=== PATIENT | female | born 1930 ===

== ENCOUNTER 2017-07-05 20:43 | Emergency (ER) | payer MEDICARE, MEDICAID ==
[2017-07-05 20:43] VITALS: PULSE 82
[2017-07-05 21:31] VITALS: TEMP 97.8; O2SAT 98
--- NOTE | 2017-07-05 21:59 | ED PDOC ---
Upper Extremity Pain/Injury Time Seen by Provider: 07/05/17 21:03 Chief Complaint (Nursing): Upper Extremity Problem/Injury Chief Complaint (Provider): Atraumatic Left Arm Pain History Per: Patient History/Exam Limitations: no limitations Onset/Duration Of Symptoms: Days (12 hours ago) Current Symptoms Are (Timing): Still Present Additional Complaint(s): 86 y/o female with a history of hypertension and osteoarthritis presents to the ED complaining of atraumatic left arm pain, onset of 12 hours ago. Patient reports that the pain subsides when she holds her arm in flexion and worsens when in extension. She denies any injury or sleeping on the the arm in the wrong position. She also denies any redness, fevers, chills, or other pain. Past Medical History Reviewed: Historical Data, Nursing Documentation, Vital Signs Vital Signs: Last Vital Signs Temp 97.8 F 07/05/17 21:28 Pulse 93 H 07/05/17 21:28 Resp 18 07/05/17 21:28 BP 208/116 H 07/05/17 21:28 Pulse Ox 98 07/05/17 21:28 - Medical History PMH: Anemia, Anxiety, Arthritis, Atrial Fibrillation, Cardia Arrhythmia, Dementia, Depression, Diabetes, Gastritis, HTN, Hypercholesterolemia, Hypothyroidism, Pancreatitis Denies: HIV, Chronic Kidney Disease Other PMH: Osteoarthritis - Surgical History Surgical History: Cholecystectomy, Pacemaker - Family History Family History: States: Unknown Family Hx - Social History Current smoker - smoking cessation education provided: No Ex-Smoker (has not smoked in the last 12 months): No Alcohol: None Drugs: Denies - Home Medications Home Medications: Ambulatory Orders Medication Instructions Recorded Alendronate Sodium [Fosamax] 35 mg PO QWK 04/16/14 Rosuvastatin Calcium [Crestor] 10 mg PO HS 04/16/14 Alprazolam [Xanax] 0.25 mg PO HS #0 tab 01/19/15 Amoxicillin 500 mg PO Q12 #0 cap 01/19/15 Aspirin [Ecotrin] 81 mg PO DAILY #0 tabec 01/19/15 Atorvastatin [Lipitor] 40 mg PO DAILY #0 tab 01/19/15 Digoxin 0.125 mg PO DAILY #0 tab 01/19/15 Latanoprost 0.005% Opht [Xalatan 1 drop OU HS #0 bottle 01/19/15 Opht] Levothyroxine [Synthroid] 0.075 mg PO DAILY@0630 #0 tab 01/19/15 Lisinopril [Zestril] 20 mg PO DAILY #0 tab 01/19/15 Metoprolol Succinate [Toprol XL] 50 mg PO QAM #0 tab 01/19/15 amLODIPine [Norvasc] 5 mg PO DAILY #0 tab 01/19/15 metFORMIN [glucOPHAGE] 500 mg PO BIDWM #0 tab 01/19/15 predniSONE [Prednisone] 10 mg PO DAILY #40 tab 01/19/15 Ketorolac Tromethamine [Toradol] 10 mg PO Q6 #20 tab 07/05/17 - Allergies Allergies/Adverse Reactions: Allergies Allergy/AdvReac Type Severity Reaction Status Date / Time No Known Allergies Allergy Verified 07/05/17 20:53 Review of Systems ROS Statement: Except As Marked, All Systems Reviewed And Found Negative Constitutional: Negative for: Fever, Chills Musculoskeletal: Positive for: Arm Pain (atraumatic left arm pain) Physical Exam - Reviewed Nursing Documentation Reviewed: Yes Vital Signs Reviewed: Yes - Physical Exam Appears: Positive for: Non-toxic, No Acute Distress Head Exam: Positive for: ATRAUMATIC Skin: Positive for: Normal Color, Warm Eye Exam: Positive for: Normal appearance, EOMI, PERRL ENT: Positive for: Normal ENT Inspection Neck: Positive for: Normal, Painless ROM, Supple Cardiovascular/Chest: Positive for: Regular Rate, Rhythm. Negative for: Murmur Respiratory: Positive for: Normal Breath Sounds. Negative for: Respiratory Distress Pulses-Radial (L): 2+ Pulses-Radial (R): 2+ Back: Positive for: Normal Inspection Extremity: Negative for: Normal ROM (left arm is held in flexion, unable to straighten arm secondary to pain; able to squeeze; able to flex and extend at the wrist; able to oppose thumb to all fingers), Pedal Edema, Deformity Neurologic/Psych: Positive for: Alert, Oriented. Negative for: Motor/Sensory Deficits - ECG O2 Sat by Pulse Oximetry: 98 (RA) Pulse Ox Interpretation: Normal Medical Decision Making Medical Decision Making: Time: --21:31 Impression: --Osteoarthritis flare vs. Deep Vein Thrombosis vs. Fracture Plan: --Toradol 15mg IVP --Morphine 2mg IVP --Left elbow x-ray --Left Forearm X-ray --Left Hand x-ray --Duplex UPPer Extremity VVein Left Ultrasound Reassess 2300 Pt. now pain free, 0/10 pain. u/s neg, xray shows OA but no acute pathology. Told family to f/u in clinic [facility]. Return precautions discussed. Scribe Attestation: Documented by Kai Bustillos acting as a scribe for Jose Zhu MD. Disposition - Clinical Impression Clinical Impression: Arm pain - Disposition Referrals: Lila Yeh MD [Family Provider] - Disposition Time: 23:30 Condition: IMPROVED Prescriptions: Ketorolac Tromethamine [Toradol] 10 mg PO Q6 #20 tab Instructions: Arthralgia (ED) Forms: [facility] (Somali) Print Language: FAROESE
--- NOTE | 2017-07-05 23:23 | US ---
EXAM: US Duplex Left Upper Extremity Veins EXAM DATE/TIME: 07/05/2017 9:31 PM CLINICAL HISTORY: 86 years old, female; Pain; Arn, upper and arm; Left; Additional info: R/O dvt TECHNIQUE: Real-time ultrasound scan of the veins of the left upper extremity with color Doppler flow, spectral waveform analysis and compression. COMPARISON: No relevant prior studies available. FINDINGS: No evidence of thrombus in the left internal jugular, subclavian, axillary, brachial, basilic, radial, ulnar veins based on compressibility and flow images. IMPRESSION: No evidence of DVT.
[2017-07-05 23:35] VITALS: RESP 16
[2017-07-05 23:57] VITALS: BP 187/98; PULSE 89
--- NOTE | 2017-07-06 09:29 | RAD ---
PROCEDURE: Radiographs of the left elbow. HISTORY: arm pain COMPARISON: No prior. FINDINGS: BONES: No acute fracture is appreciated or destructive bony lesion. Diffuse osteopenia suggests osteoporosis however. JOINTS: Normal. No osteoarthritis. SOFT TISSUES: Normal. JOINT EFFUSION: None. OTHER FINDINGS: None IMPRESSION: No acute fracture or dislocation left elbow. Diffuse osteopenia suggests osteoporosis.
--- NOTE | 2017-07-06 09:30 | RAD ---
PROCEDURE: Radiographs of the Left Forearm HISTORY: arm pain, no trauma, hx of OA COMPARISON: None available. TECHNIQUE: Frontal and lateral views obtained. FINDINGS: BONES: No fracture or destructive lesion. JOINT SPACES: Degenerative changes seen throughout the wrist joints diffusely. OTHER FINDINGS: Diffuse osteopenia suggests osteoporosis. IMPRESSION: No acute fracture or dislocation. Diffuse osteopenia suggests osteoporosis.
--- NOTE | 2017-07-06 09:32 | RAD ---
PROCEDURE: Left Hand Radiographs. HISTORY: pain, hx of OA COMPARISON: None. FINDINGS: BONES: No acute fracture or destructive bony lesion identified. Diffuse osteopenia suggests osteoporosis. Evaluation of the ring finger is limited due to inability of patient to remove a metallic ring. JOINTS: Mild joint space narrowing seen throughout the interphalangeal joints diffusely throughout the digits as well as throughout the joints of the wrist including cortical sclerosis. No dislocation. SOFT TISSUES: Normal. OTHER FINDINGS: None. IMPRESSION: No acute fracture or dislocation left hand. Diffuse osteopenia suggests osteoporosis. Degenerative changes are seen throughout the digits and wrist joints as discussed above.
== END 2017-07-05 23:57 | disposition home or self-care (01) ==
LOC: H.ER 20:43
DX: M79.602 Pain in left arm (principal); E11.9 Type 2 diabetes mellitus without complications; I10 Essential (primary) hypertension; Z86.59 Personal history of other mental and behavioral disorders; F03.90 Unspecified dementia, unspecified severity, without behavioral disturbance, psychotic disturbance, mood disturbance, and anxiety; E03.9 Hypothyroidism, unspecified; M85.80 Other specified disorders of bone density and structure, unspecified site; Z79.84 Long term (current) use of oral hypoglycemic drugs; Z87.891 Personal history of nicotine dependence; Z95.0 Presence of cardiac pacemaker; Z79.82 Long term (current) use of aspirin; E78.00 Pure hypercholesterolemia, unspecified
CPT/HCPCS: 73080; 73090; 73130; 93971; 96374; 96375; 99282; J1885; J2270

== ENCOUNTER 2017-09-19 14:10 | Observation (INO) | payer MEDICARE, MEDICAID ==
[2017-09-19 14:10] VITALS: PULSE 82
[2017-09-19] MEDS ORDERED: Sodium Chloride 0.9% 500 ML IV STA (15:10)
[2017-09-19 16:02] LABS: BASO % 0.1 % (0.0-2.0); EOS % 0.1 % (0.0-4.0); HEMOGLOBIN 14.9 g/dL (12.0-16.0); LYMPH # 0.9 K/uL (1.0-4.3); LYMPH % 6.7 % (20.0-40.0); MEAN CORPUSCULAR HEMOGLOBIN 31.8 pg (27.0-31.0); MEAN PLATELET VOLUME 7.8 fl (7.2-11.7); MONO # 0.8 K/uL (0.0-0.8); MONO % 5.6 % (0.0-10.0); NEUT % 87.5 % (50.0-75.0); NRBC % 0.1 % (0.0-0.0); PLATELET COUNT 318 K/uL (130-400); RBC 4.67 Mil/uL (3.80-5.20)
[2017-09-19 16:05] LABS: WHITE BLOOD COUNT 13.7 K/uL (4.8-10.8)
[2017-09-19 16:08] LABS: ALB/GLOB RATIO 1.3 (1.0-2.1); ALBUMIN 4.3 g/dL (3.5-5.0); ALT/SGPT 29 U/L (9-52); AST/SGOT 19 U/L (14-36); BLOOD UREA NITROGEN 17 mg/dl (7-17); CALCIUM 9.7 mg/dL (8.4-10.2); GFR AFRICAN-AMERICAN > 60; GFR NON-AFRICAN AMERICAN > 60; LIPASE 271 U/L (23-300)
--- NOTE | 2017-09-19 16:13 | ED PDOC ---
HPI:Nausea, Vomiting, Diarrhea Time Seen by Provider: 09/19/17 14:37 Chief Complaint (Nursing): Altered Mental Status Chief Complaint (Provider): Nausea, Vomiting and weakness History Per: Patient History/Exam Limitations: no limitations Onset/Duration Of Symptoms: Hrs (this morning. ) Current Symptoms Are (Timing): Still Present Associated Symptoms: Nausea, Vomiting, Other (generalized weakness) Additional Complaint(s): Renea Victor is an 87 year old female, with a past medical history of HTN , osteoarthritis, and cholecystectomy, who was brought to the emergency department via EMS for nausea, and generalized weakness onset since this morning associated with vomiting. Patient reports she woke up this morning not feeling well and dizzy. She had an appointment with orthopedic surgeon and was due to get injections into the shoulder on both sides, after injection she became more nauseous and vomited profusely multiple times. In doctors office she was noted to be lethargic, stone spreader operator notified the daughter and patient was brought to the ER. Upon arrival patient states she feels better but slightly off. Patient is just complaining of weakness all over and feeling tired. She wasn't communicating clearly even with the family. She denies any diarrhea, headache, chest pain or shortness of breath. No further medical complaints. PMD: Lila Yeh Past Medical History Reviewed: Historical Data, Nursing Documentation, Vital Signs Vital Signs: Last Vital Signs Temp 98.2 F 09/19/17 14:18 Pulse 91 H 09/19/17 14:18 Resp 16 09/19/17 14:18 BP 207/90 H 09/19/17 14:18 Pulse Ox 99 09/19/17 14:18 - Medical History PMH: Anemia, Anxiety, Arthritis, Atrial Fibrillation, Cardia Arrhythmia, Dementia, Depression, Diabetes, Gastritis, HTN, Hypercholesterolemia, Hypothyroidism, Pancreatitis Denies: HIV, Chronic Kidney Disease - Surgical History Surgical History: Cholecystectomy, Pacemaker - Family History Family History: States: Unknown Family Hx - Social History Current smoker - smoking cessation education provided: No Alcohol: None Drugs: Denies - Home Medications Home Medications: Ambulatory Orders Medication Instructions Recorded Alendronate Sodium [Fosamax] 35 mg PO QWK 04/16/14 Rosuvastatin Calcium [Crestor] 10 mg PO HS 04/16/14 Alprazolam [Xanax] 0.25 mg PO HS #0 tab 01/19/15 Amoxicillin 500 mg PO Q12 #0 cap 01/19/15 Aspirin [Ecotrin] 81 mg PO DAILY #0 tabec 01/19/15 Atorvastatin [Lipitor] 40 mg PO DAILY #0 tab 01/19/15 Digoxin 0.125 mg PO DAILY #0 tab 01/19/15 Latanoprost 0.005% Opht [Xalatan 1 drop OU HS #0 bottle 01/19/15 Opht] Levothyroxine [Synthroid] 0.075 mg PO DAILY@0630 #0 tab 01/19/15 Lisinopril [Zestril] 20 mg PO DAILY #0 tab 01/19/15 Metoprolol Succinate [Toprol XL] 50 mg PO QAM #0 tab 01/19/15 amLODIPine [Norvasc] 5 mg PO DAILY #0 tab 01/19/15 metFORMIN [glucOPHAGE] 500 mg PO BIDWM #0 tab 01/19/15 predniSONE [Prednisone] 10 mg PO DAILY #40 tab 01/19/15 Ketorolac Tromethamine [Toradol] 10 mg PO Q6 #20 tab 07/05/17 - Allergies Allergies/Adverse Reactions: Allergies Allergy/AdvReac Type Severity Reaction Status Date / Time No Known Allergies Allergy Verified 07/05/17 20:53 Review of Systems ROS Statement: Except As Marked, All Systems Reviewed And Found Negative Constitutional: Positive for: Weakness (generalized) Cardiovascular: Negative for: Chest Pain Respiratory: Negative for: Shortness of Breath Gastrointestinal: Positive for: Nausea, Vomiting (multiple episodes). Negative for: Diarrhea Neurological: Positive for: Dizziness (some). Negative for: Headache Physical Exam - Reviewed Nursing Documentation Reviewed: Yes Vital Signs Reviewed: Yes - Physical Exam Appears: Positive for: Non-toxic. Negative for: Well (She initially looked pale , not able to focus on questions and answers even for the family. ) Head Exam: Positive for: ATRAUMATIC, NORMAL INSPECTION, NORMOCEPHALIC Skin: Positive for: Warm, Dry Eye Exam: Positive for: Normal appearance Neck: Positive for: Painless ROM, Supple Cardiovascular/Chest: Positive for: Regular Rate, Rhythm. Negative for: Murmur Respiratory: Positive for: Normal Breath Sounds (clear auscultation b/l). Negative for: Respiratory Distress Gastrointestinal/Abdominal: Positive for: Normal Exam, Soft. Negative for: Tenderness, Guarding, Rebound Back: Positive for: Normal Inspection. Negative for: L CVA Tenderness, R CVA Tenderness Extremity: Positive for: Normal ROM. Negative for: Tenderness, Deformity, Swelling Neurologic/Psych: Positive for: Alert, Oriented. Negative for: Motor/Sensory Deficits (Good grasp. Motor 5/5 to upper and lower extremities. ) - Laboratory Results Result Diagrams: 09/19/17 15:50 09/19/17 15:50 - ECG ECG Rhythm: Positive for: Sinus Rhythm, Atrial Fibrillation Rate: 73 O2 Sat by Pulse Oximetry: 99 (RA) Pulse Ox Interpretation: Normal - Radiology X-Ray: Viewed By Co X-Ray Interpretation: No Acute Disease (CT Head without obvious acute process) Medical Decision Making Medical Decision Making: Initial Impression: Acute nausea, vomiting w/ possible dehydration and electrolyte imbalance. Rule out ischemia. Initial Plan: --Head w/o contrast [CT] --EKG --CMP --Lipase --Troponin I --Urine dipstick --CBC w/ differential --Sodium Chloride 500 ml IV 125 mls/hr --Reevaluation EKG showed A-Fib, patient has a pacemaker in place with proper rhythm and circulation. Scribe Attestation: Documented by Lio Mesa, acting as a scribe for Lola Robertson MD Provider Scribe Attestation: All medical record entries made by the Scribe were at my direction and personally dictated by me. I have reviewed the chart and agree that the record accurately reflects my personal performance of the history, physical exam, medical decision making, and the department course for this patient. I have also personally directed, reviewed, and agree with the discharge instructions and disposition. Disposition - Clinical Impression Clinical Impression: Hyponatremia - Patient ED Disposition Is Patient to be Admitted: Yes Doctor Will See Patient In The: Hospital - Disposition Disposition: Transfer of Care Disposition Time: 16:36 Condition: FAIR Instructions: Hyponatremia Forms: [facility] (Frisian) - Pt Status Changed To: Hospital Disposition Of: Inpatient - Admit Certification Admit to Inpatient:: After my assessment, the patient will require hospitalization for at least two midnights. This is because of the severity of symptoms shown, intensity of services needed, and/or the medical risk in this patient being treated as an outpatient. - POA Present On Arrival: None
--- NOTE | 2017-09-19 16:32 | CT ---
PROCEDURE: CT HEAD WITHOUT CONTRAST. HISTORY: profuse vomiting COMPARISON: None available. TECHNIQUE: Axial computed tomography images were obtained through the head/brain without intravenous contrast. Radiation dose: Total exam DLP = 902 mGy-cm. This CT exam was performed using one or more of the following dose reduction techniques: Automated exposure control, adjustment of the mA and/or kV according to patient size, and/or use of iterative reconstruction technique. FINDINGS: HEMORRHAGE: No intracranial hemorrhage. BRAIN: No mass effect or edema. Generalized cerebral atrophy and chronic microvascular ischemic changes. This appears slightly more asymmetric in the region of the right internal capsule VENTRICLES: The ventricular prominence is commensurate with the degree of atrophy. CALVARIUM: Unremarkable. PARANASAL SINUSES: Unremarkable as visualized. No significant inflammatory changes. MASTOID AIR CELLS: Unremarkable as visualized. No inflammatory changes. OTHER FINDINGS: None. IMPRESSION: No intracranial hemorrhage or mass effect. Extensive cerebral atrophy and findings compatible with probable chronic microvascular ischemic changes.
--- NOTE | 2017-09-19 17:29 | CP.PCM.HP ---
History of Present Illness - History of Present Illness History of Present Illness: CC: Nausea, vomiting, poor appetite 87F with family at bedside, brought in by EMS from orthopedic appointment for b/ l shoulder injections for arthritis when she began having multiple bouts of NBNB vomiting. ROS is negative for fevers, chills, cough, sick contacts, SOB, chest pain, abdominal pain, diarrhea, or dysuria. The son reports that she didn 't eat breakfast well and that patient felt a "little dizzy" but denies falls and states she seemed a little confused from baseline. Of note, patient had bilateral knee cortisone injections ~2 weeks ago. Discussion held with healthcare proxy: Daughter Edith and second decision- maker son Bulmaro regarding patients wishes should she require resuscitative measures in the presence of ER nurse Lorenza Espinosa. They both communicated that patient wishes to be DNR/DNI and that paperwork was at the house. PMD: Lila Yeh PMH: HTN, DM, HLD, A-fib (no anticoagulation 2/2 falls), AICD ([place], 7yrs ago ), hypothyroid, arthritis, heart failure PSH: Cholecystectomy Denies smoking Allergies: None Present on Admission - Present on Admission Any Indicators Present on Admission: No Review of Systems - Gastrointestinal Gastrointestinal: Abdominal Pain (epigastric), Nausea, Vomiting Past Patient History - Past Medical History & Family History Past Medical History?: Yes - Past Social History Alcohol: None Drugs: Denies - CARDIAC Hx Atrial Fibrillation: Yes Hx Cardia Arrhythmia: Yes Hx Hypercholesterolemia: Yes Hx Hypertension: Yes Hx Pacemaker: Yes - PULMONARY Hx Respiratory Disorders: No - NEUROLOGICAL Hx Dementia: Yes - HEENT Hx HEENT Problems: Yes - RENAL Hx Chronic Kidney Disease: No - ENDOCRINE/METABOLIC Hx Hypothyroidism: Yes - HEMATOLOGICAL/ONCOLOGICAL Hx Anemia: Yes Hx Human Immunodeficiency Virus (HIV): No - INTEGUMENTARY Hx Cellulitis: Yes - MUSCULOSKELETAL/RHEUMATOLOGICAL Hx Arthritis: Yes - GASTROINTESTINAL Hx Gastritis: Yes Hx Pancreatitis: Yes - PSYCHIATRIC Hx Anxiety: Yes Hx Depression: Yes - SURGICAL HISTORY Hx Cholecystectomy: Yes - ANESTHESIA Hx Anesthesia: Yes Hx Anesthesia Reactions: No Meds Allergies/Adverse Reactions: Allergies Allergy/AdvReac Type Severity Reaction Status Date / Time No Known Allergies Allergy Verified 07/05/17 20:53 Physical Exam - Constitutional Appears: Non-toxic, No Acute Distress (Resting comfortably) - Head Exam Head Exam: ATRAUMATIC, NORMAL INSPECTION - Eye Exam Eye Exam: PERRL, Scleral icterus (mild) - ENT Exam ENT Exam: Mucous Membranes Dry - Respiratory Exam Respiratory Exam: Clear to Auscultation Bilateral, NORMAL BREATHING PATTERN. absent: Rales, Rhonchi - Cardiovascular Exam Cardiovascular Exam: Irregular Rhythm - GI/Abdominal Exam GI & Abdominal Exam: Normal Bowel Sounds, Soft, Tenderness (epigastric on deeper palpation) - Extremities Exam Extremities exam: Positive for: normal capillary refill, pedal pulses present. Negative for: pedal edema - Neurological Exam Neurological exam: Alert - Psychiatric Exam Psychiatric exam: Normal Affect, Normal Mood - Skin Skin Exam: Dry, Warm Additional comments: Appeared jaundiced, BUT TBili is WNL Results - Vital Signs Recent Vital Signs: Last Vital Signs Temp 36.8 C 09/19/17 14:18 Pulse 73 09/19/17 16:36 Resp 16 09/19/17 14:18 BP 207/90 H 09/19/17 14:18 Pulse Ox 99 09/19/17 16:36 - Labs Result Diagrams: 09/19/17 15:50 09/19/17 15:50 Labs: Laboratory Results - last 24 hr 09/19/17 09/19/17 09/19/17 14:36 15:50 15:50 WBC 13.7 H D RBC 4.67 Hgb 14.9 D Hct 42.5 MCV 91.0 MCH 31.8 H MCHC 35.0 RDW 13.0 Plt Count 318 MPV 7.8 Neut % (Auto) 87.5 H Lymph % (Auto) 6.7 L [place] % (Auto) 5.6 Eos % (Auto) 0.1 Baso % (Auto) 0.1 Neut # (Auto) 12.0 H Lymph # (Auto) 0.9 L [place] # (Auto) 0.8 Eos # (Auto) 0.0 Baso # (Auto) 0.0 Sodium 126 L Potassium 5.2 H Chloride 83 L Carbon Dioxide 27 Anion Gap 21 H BUN 17 Creatinine 0.8 Est GFR ( Amer) > 60 Est GFR (Non-Af Amer) > 60 POC Glucose (mg/dL) 172 H Random Glucose 165 H Calcium 9.7 Total Bilirubin 0.3 AST 19 ALT 29 Alkaline Phosphatase 53 Troponin I < 0.0120 Total Protein 7.5 Albumin 4.3 Globulin 3.2 Albumin/Globulin Ratio 1.3 Lipase 271 Assessment & Plan (1) Nausea & vomiting Assessment and Plan: New onset today possible medications (digoxin) vs. gastroenteritis (epigastric pain) and an associated leukocytosis. - Diet - IVF - Replete electrolytes as indicated - Zofran PRN - 500ml NS, bolus x1 Status: Acute (2) Hyponatremia Assessment and Plan: Acute finding, mild, may be secondary to medication vs. excess water ingestion. - Fluid restriction - 500ml NS - Monitor (labs) Status: Acute (3) DM2 (diabetes mellitus, type 2) Status: Chronic (4) DVT prophylaxis Assessment and Plan: Lovenox 40mg, SC, HS Status: Acute (5) HTN (hypertension) Assessment and Plan: Chronic, stable. - c/w medications - Monitor Status: Acute (6) Hypothyroidism Assessment and Plan: Chronic, will monitor. - c/w medications - f/u TSH Status: Chronic (7) Atrial fibrillation Assessment and Plan: Chronic, not on anticoagulation. - c/w medications - Telemetry Status: Chronic Onset Date: 04/16/14
[2017-09-19 18:40] LABS: BANDS 2 % (0-2); HYPOCHROMIC SLIGHT; LYMPHOCYTE 7 % (20-50); MONOCYTE 6 % (0-10); NEUTROPHIL 85 % (42-75); PLATELET ESTIMATE NORMAL (NORMAL); TOTAL CELLS COUNTED 100
[2017-09-19] MEDS ORDERED: Sodium Chloride 0.9% 500 ML IV ONE (19:57)
[2017-09-19] MEDS ORDERED: Latanoprost 0.005% Opht SOUTION OD SCH (22:00)
[2017-09-20 05:53] LABS: HEMOGLOBIN 14.2 g/dL (12.0-16.0); MEAN CELL VOLUME 92.7 fl (81.0-99.0); MEAN CORPUSCULAR HEMOGLOBIN 31.6 pg (27.0-31.0); MEAN CORPUSCULAR HGB CONC 34.1 g/dL (33.0-37.0); RBC 4.5 Mil/uL (3.80-5.20); RED CELL DISTRIBUTION WIDTH 13.2 % (11.5-14.5); WHITE BLOOD COUNT 11.7 K/uL (4.8-10.8)
[2017-09-20] MEDS ORDERED: Levothyroxine 75 MCG TAB PO SCH (06:30)
[2017-09-20 06:50] LABS: ALB/GLOB RATIO 1.2 (1.0-2.1); ALBUMIN 3.8 g/dL (3.5-5.0); ALT/SGPT 22 U/L (9-52); AST/SGOT 25 U/L (14-36); BLOOD UREA NITROGEN 18 mg/dl (7-17); CALCIUM 9.5 mg/dL (8.4-10.2); GFR AFRICAN-AMERICAN > 60; GFR NON-AFRICAN AMERICAN > 60
--- NOTE | 2017-09-20 07:29 | RAD ---
HISTORY: for admission, elevated WBC COMPARISON: Portable chest 10/14/2014. FINDINGS: Bipolar permanent cardiac pacemaker again identified, appearing stable. LUNGS: No active pulmonary disease. PLEURA: No significant pleural effusion identified, no pneumothorax apparent. CARDIOVASCULAR: Normal. OSSEOUS STRUCTURES: No significant abnormalities. VISUALIZED UPPER ABDOMEN: Surgical clips are noted in the right upper quadrant abdomen. OTHER FINDINGS: None. IMPRESSION: No interval acute cardiopulmonary disease appreciated.
--- NOTE | 2017-09-20 07:55 | CP.PCM.PN ---
Objective - Vital Signs/Intake and Output Vital Signs (last 24 hours): Temp Pulse Resp BP Pulse Ox 97.4 F L 83 18 142/76 96 09/20/17 04:59 09/20/17 04:59 09/20/17 04:59 09/20/17 04:59 09/20/17 04:59 - Medications Medications: Current Medications Aspirin (Ecotrin) 81 mg PO DAILY [facility] Atorvastatin Calcium (Lipitor) 20 mg PO HS [facility] Last Admin: 09/19/17 21:26 Dose: 20 mg Digoxin (Digoxin) 0.125 mg PO DAILY [facility] Enoxaparin Sodium (Lovenox) 40 mg SC DAILY [facility] PRN Reason: Protocol Latanoprost (Xalatan Opht) 1 drop OD HS [facility] Last Admin: 09/19/17 21:27 Dose: 1 drop Lisinopril (Zestril) 10 mg PO DAILY [facility] Metformin HCl (Glucophage) 500 mg PO BID [facility] Metoprolol Succinate (Toprol Xl) 50 mg PO DAILY [facility] Multivitamins/Minerals (Therapeutic-M Tab) 1 tab PO DAILY [facility] Ondansetron HCl (Zofran Inj) 4 mg IVP Q6 PRN PRN Reason: Nausea/Vomiting - Labs Labs: 09/20/17 05:15 09/20/17 05:15
[2017-09-20] MEDS ORDERED: Metoprolol Succinate 50 mg XL Tab PO SCH (09:00)
[2017-09-20] MEDS ORDERED: Digoxin 125 mcg (0.125 mg) Tab PO SCH (09:00)
[2017-09-20] MEDS ORDERED: Enoxaparin 40 mg Syringe SC SCH (09:00)
[2017-09-20] MEDS ORDERED: Multivitamin With Minerals Tab PO SCH (09:00)
[2017-09-20 12:07] VITALS: TEMP 97.9
[2017-09-20] MEDS ORDERED: Influenza Vaccine 18yr & older 0.5 ML/45 MCG SYR IM ONE (12:24)
[2017-09-20 12:29] LABS: SQUAMOUS EPITHIAL < 1 /hpf (0-5); URINE BILIRUBIN NEGATIVE (NEGATIVE); URINE BLOOD NEGATIVE (NEGATIVE); URINE CLARITY CLEAR (Clear); URINE COLOR YELLOW (YELLOW); URINE GLUCOSE (UA) NEG (Normal); URINE HYALINE CAST 0-2 /hpf (0-2); URINE LEUKOCYTE ESTERASE NEG Leu/uL (Negative); URINE PROTEIN 100 mg/dL (NEGATIVE); URINE UROBILINOGEN 0.2-1.0 mg/dL (0.2-1.0)
--- NOTE | 2017-09-20 13:40 | PQF GENQUE ---
Dr. Gomez, 2 queries: 1.Please provide a nutritional diagnosis, if known, related to the information below: The following clinical indicators are present in the medical record: BMI:18.9 5ft 4in 2. If in agreement please add the BMI to ypur next progress note OR: Disagree OR: Other explanation of clinical finding This form is a permanent part of the medical record Clarification of your documentation is requested to better reflect the severity of illness and intensity of treatment of your patient. Indicators present [] Specify: [] [] Specify: [] [] Specify: [] [] Specify: [] Location in the medical record that reflects the above clinical findings: [] Treatment Provided: [] PHYSICIAN'S RESPONSE Based on your medical judgment of the clinical indicators outlined above please clarify the following: [] Practitioner response [] If unable to determine, please check the box, sign and date. Present On Admission (POA) Indicator: [] Present at the time of admission [] Not present at the time of admission [] Clinically Undetermined In responding to this query, please exercise your independent professional judgment. The fact that a question is asked does not imply that any particular answer is desired or expected. Thank you for your clarification on this documentation. If you have any questions please call. * Thank you, Shahida House RN ext. #[phone] MTDD
--- NOTE | 2017-09-20 14:26 | CP.PCM.DIS ---
Provider - Provider Date of Admission: 09/19/17 16:45 Attending physician: Pallavi Denson MD Primary care physician: Dr. Yeh Time Spent in preparation of Discharge (in minutes): 35 Diagnosis - Discharge Diagnosis (1) Gastritis Status: Resolved Comment: Pt presented with several hour history of nausea and vomiting; which have since resolved. She was hydrated with IV fluids, and symptoms resolved. (2) Leukocytosis Status: Acute Comment: Pt had a WBC of 13 on admission; this is likely a reactive leukocytosis due to the steroid injections she received earlier in the day. She was afebrile, vital signs remained stable during hospital stay. Urinalysis was sent, and was negative for indication of infection. (3) Hyponatremia Status: Resolved Comment: Pt was found to be hyponatremic on presentation; was fluid restricted with trend toward resolution. Hospital Course - Lab Results Lab Results: Most Recent Lab Values WBC 11.7 K/uL (4.8-10.8) H 09/20/17 05:15 RBC 4.50 Mil/uL (3.80-5.20) 09/20/17 05:15 Hgb 14.2 g/dL (12.0-16.0) 09/20/17 05:15 Hct 41.7 % (34.0-47.0) 09/20/17 05:15 MCV 92.7 fl (81.0-99.0) 09/20/17 05:15 MCH 31.6 pg (27.0-31.0) H 09/20/17 05:15 MCHC 34.1 g/dL (33.0-37.0) 09/20/17 05:15 RDW 13.2 % (11.5-14.5) 09/20/17 05:15 Plt Count 288 K/uL (130-400) 09/20/17 05:15 MPV 7.8 fl (7.2-11.7) 09/19/17 15:50 Neut % (Auto) 87.5 % (50.0-75.0) H 09/19/17 15:50 Lymph % (Auto) 6.7 % (20.0-40.0) L 09/19/17 15:50 [place] % (Auto) 5.6 % (0.0-10.0) 09/19/17 15:50 Eos % (Auto) 0.1 % (0.0-4.0) 09/19/17 15:50 Baso % (Auto) 0.1 % (0.0-2.0) 09/19/17 15:50 Neut # (Auto) 12.0 K/uL (1.8-7.0) H 09/19/17 15:50 Lymph # (Auto) 0.9 K/uL (1.0-4.3) L 09/19/17 15:50 [place] # (Auto) 0.8 K/uL (0.0-0.8) 09/19/17 15:50 Eos # (Auto) 0.0 K/uL (0.0-0.7) 09/19/17 15:50 Baso # (Auto) 0.0 K/uL (0.0-0.2) 09/19/17 15:50 Neutrophils % (Manual) 85 % (42-75) H 09/19/17 15:50 Band Neutrophils % 2 % (0-2) 09/19/17 15:50 Lymphocytes % (Manual) 7 % (20-50) L 09/19/17 15:50 Monocytes % (Manual) 6 % (0-10) 09/19/17 15:50 Platelet Estimate Normal (NORMAL) 09/19/17 15:50 Hypochromasia (manual) Slight 09/19/17 15:50 Sodium 130 mmol/l (132-148) L 09/20/17 05:15 Potassium 5.0 MMOL/L (3.6-5.0) 09/20/17 05:15 Chloride 88 mmol/L (98-107) L 09/20/17 05:15 Carbon Dioxide 27 mmol/L (22-30) 09/20/17 05:15 Anion Gap 20 (10-20) 09/20/17 05:15 BUN 18 mg/dl (7-17) H 09/20/17 05:15 Creatinine 0.8 mg/dl (0.7-1.2) 09/20/17 05:15 Est GFR ( Amer) > 60 09/20/17 05:15 Est GFR (Non-Af Amer) > 60 09/20/17 05:15 POC Glucose (mg/dL) 214 mg/dL (65-110) H 09/20/17 11:24 Random Glucose 190 mg/dL (65-105) H 09/20/17 05:15 Calcium 9.5 mg/dL (8.4-10.2) 09/20/17 05:15 Total Bilirubin 0.5 mg/dl (0.2-1.3) 09/20/17 05:15 AST 25 U/L (14-36) 09/20/17 05:15 ALT 22 U/L (9-52) 09/20/17 05:15 Alkaline Phosphatase 46 U/L (38-126) 09/20/17 05:15 Troponin I < 0.0120 ng/mL (0.00-0.120) 09/20/17 05:15 Total Protein 6.9 G/DL (6.3-8.2) 09/20/17 05:15 Albumin 3.8 g/dL (3.5-5.0) 09/20/17 05:15 Globulin 3.1 gm/dL (2.2-3.9) 09/20/17 05:15 Albumin/Globulin Ratio 1.2 (1.0-2.1) 09/20/17 05:15 Lipase 271 U/L (23-300) 09/19/17 15:50 TSH 3rd Generation 0.30 mIU/ML (0.46-4.68) L 09/20/17 05:15 Urine Color Yellow (YELLOW) 09/20/17 11:55 Urine Clarity Clear (Clear) 09/20/17 11:55 Urine pH 6.0 (5.0-8.0) 09/20/17 11:55 Ur Specific [place] 1.012 (1.003-1.030) 09/20/17 11:55 Urine Protein 100 mg/dL (NEGATIVE) 09/20/17 11:55 Urine Glucose (UA) Neg mg/dL (Normal) 09/20/17 11:55 Urine Ketones Negative mg/dL (NEGATIVE) 09/20/17 11:55 Urine Blood Negative (NEGATIVE) 09/20/17 11:55 Urine Nitrate Negative (NEGATIVE) 09/20/17 11:55 Urine Bilirubin Negative (NEGATIVE) 09/20/17 11:55 Urine Urobilinogen 0.2-1.0 mg/dL (0.2-1.0) 09/20/17 11:55 Ur Leukocyte Esterase Neg Brigitte/uL (Negative) 09/20/17 11:55 Urine RBC (Auto) 4 /hpf (0-3) H 09/20/17 11:55 Urine Microscopic WBC 2 /hpf (0-5) 09/20/17 11:55 Ur Squamous Epith Cells < 1 /hpf (0-5) 09/20/17 11:55 Hyaline Casts 0-2 /hpf (0-2) 09/20/17 11:55 Digoxin 1.1 ng/mL (0.8-2.0) 09/19/17 20:25 - Hospital Course Hospital Course: Renea Victor is an 87 yo F with PMH HTN, DM, HLD, A-fib (no anticoagulation due to hx of falls), AICD, hypothyroidism, arthritis, was admitted due to vomiting and hyponatremia. Pt received IF hydration and was PO fluid restricted. Nausea and vomiting resolved, and sodium level corrected toward normal. She had WBC of 13.7, which was likely due to steroid injections she received earlier in the day; WBC trended down without intervention. Urinalysis did not reveal indication of infection and pt was afebrile. Her TSH was found to be low, and medication dosage of synthroid was adjusted to 50mcg daily, from 75 mcg daily. Her digoxin level was 1.1; she will be discharged with the adjustment of taking Digoxin 0.125 mg every other day, rather than every day, due to lower thresholds for digoxin levels in the geriatric population, as per attending Dr. Denson. She was seen and evaluated this am and had no acute events overnight; family was at bedside. Pt appeared in good spirits and stated her desire to go home. Discharge Exam - Head Exam Head Exam: ATRAUMATIC, NORMAL INSPECTION - Eye Exam Eye Exam: EOMI, Normal appearance - ENT Exam ENT Exam: Mucous Membranes Moist - Respiratory Exam Respiratory Exam: Clear to PA & Lateral, NORMAL BREATHING PATTERN, UNREMARKABLE - Cardiovascular Exam Cardiovascular Exam: Irregular Rhythm - GI/Abdominal Exam GI & Abdominal Exam: Normal Bowel Sounds, Soft, Unremarkable - Extremities Exam Extremities exam: normal capillary refill - Neurological Exam Neurological exam: Alert - Psychiatric Exam Psychiatric exam: Normal Mood - Skin Skin Exam: Dry, Normal Color, Warm Discharge Plan - Discharge Medications Prescriptions: Digoxin [Digitek] 125 mcg PO QOTHERDAY #30 tablet Levothyroxine [Synthroid] 50 mcg PO DAILY #30 tab - Follow Up Plan Condition: FAIR Disposition: HOME/ ROUTINE Instructions: Hyponatremia Additional Instructions: Please take note of the following changes to your medications: Discontinue Synthroid 75mcg; start synthroid 50 mcg. A new prescription was sent to your pharmacy. Start taking Digoxin every other day instead of every day. You received a dose this morning, , 09/20/17, please take next dose on Sunday09/22/17. You have a follow up appointment at the [facility] at [address] [place] [address] on 09/26/17 at 3:40 pm. Return to ED if symptoms recur. Referrals: [facility] [place] [Outside] - 09/26/17 3:40 pm
--- NOTE | 2017-09-20 14:46 | CARD ---
APPROVED REPORT EKG Measurement Heart [id number] <Conclusion> Atrial fibrillation with frequent ventricular-paced complexes ST & T wave abnormality, consider inferior ischemia ST & T wave abnormality, consider anterolateral ischemia Abnormal ECG
[2017-09-20 15:38] VITALS: BP 153/76; PULSE 74; RESP 20; O2SAT 100
== END 2017-09-20 16:00 | disposition home or self-care (01) ==
LOC: H.ER 14:10 → H.ERHOLD 16:45 → INTOOBSV 16:45 → H.TEL 18:58
PROVIDERS: ADMIT Family Medicine Geriatric Medicine; ATTEND Family Medicine Geriatric Medicine
DX: E87.1 Hypo-osmolality and hyponatremia (principal); F03.90 Unspecified dementia, unspecified severity, without behavioral disturbance, psychotic disturbance, mood disturbance, and anxiety; I48.2 Chronic atrial fibrillation; K29.70 Gastritis, unspecified, without bleeding; I10 Essential (primary) hypertension; E03.9 Hypothyroidism, unspecified; D72.828 Other elevated white blood cell count; E11.9 Type 2 diabetes mellitus without complications; E78.5 Hyperlipidemia, unspecified; E78.00 Pure hypercholesterolemia, unspecified; M19.90 Unspecified osteoarthritis, unspecified site; Z23 Encounter for immunization; Z95.0 Presence of cardiac pacemaker; Z66 Do not resuscitate; Z91.81 History of falling
CPT/HCPCS: 36415; 70450; 71045; 80053; 80162; 81003; 82948; 83690; 84443; 84484; 85025; 85027; 87086; 93005; 99285; G0008; G0378; J1650; J7040; Q2035

== ENCOUNTER 2017-10-02 08:50 | Day surgery (SDC) | payer MEDICARE, MEDICAID ==
[2017-10-02] MEDS ORDERED: Lactated Ringer's 500 ML IV ONE (09:17)
[2017-10-02] MEDS ORDERED: Etomidate 20 mg/10ml Inj IV ONE (11:25)
[2017-10-02] MEDS ORDERED: Lidocaine PF 2% (5 ml) Inj (For Cardiac Arrhy) IV ONE (11:25)
[2017-10-02 11:49] VITALS: TEMP 97
[2017-10-02 12:11] VITALS: BP 172/72; PULSE 76; RESP 19; O2SAT 99
== END 2017-10-02 12:19 | disposition home or self-care (01) ==
LOC: H.ENDO 08:50
PROVIDERS: ATTEND Internal Medicine Gastroenterology
DX: Z98.84 Bariatric surgery status (principal); K29.50 Unspecified chronic gastritis without bleeding; R13.10 Dysphagia, unspecified; I48.91 Unspecified atrial fibrillation; I50.9 Heart failure, unspecified; E11.9 Type 2 diabetes mellitus without complications; I11.0 Hypertensive heart disease with heart failure; E03.9 Hypothyroidism, unspecified; K22.8 Other specified diseases of esophagus; K29.70 Gastritis, unspecified, without bleeding; R63.4 Abnormal weight loss
CPT/HCPCS: 43239; 82948; 88305; J7120

== ENCOUNTER 2018-04-30 06:03 | Observation (INO) | payer MEDICARE, MEDICAID ==
[2018-04-30 06:04] VITALS: PULSE 82
[2018-04-30] MEDS ORDERED: Sodium Chloride 0.9% 500 ML IV STA (07:40)
[2018-04-30] MEDS ORDERED: Povidone Iodine Topical 10% Sol ONE (07:47)
--- NOTE | 2018-04-30 08:00 | ED PDOC ---
HPI: Trauma/Fall - HPI Time Seen by Provider: 04/30/18 07:17 Chief Complaint (Nursing): Trauma Chief Complaint (Provider): Trauma History Per: Patient, Family (Son) History/Exam Limitations: no limitations Onset/Duration Of Symptoms: Other (ADMITTING CLERK) Location Of Injury: Right: Head Associated Symptoms: denies: Dizziness, LOC Additional Complaint(s): 87 years old female with history of osteoporosis, arthritis, hypertension, diabetes and high cholesterol brought to ER by EMS for evaluation of right sided head laceration status post a fall at home. Per son, patient fell on her head against the door in her bedroom while trying to go to the bathroom. Patient denies any loss of consciousness, vision changes or abdominal pain. PMD: Lila Cabral Past Medical History Reviewed: Historical Data, Nursing Documentation, Vital Signs Vital Signs: Last Vital Signs Temp 97.1 F L 04/30/18 06:17 Pulse 72 04/30/18 06:17 Resp 16 04/30/18 06:17 BP 156/94 H 04/30/18 06:17 Pulse Ox 100 04/30/18 06:17 - Medical History PMH: Anemia, Anxiety, Arthritis, Atrial Fibrillation, Cardia Arrhythmia (A FIB), Dementia, Depression, Diabetes, Gastritis, HTN, Hypercholesterolemia, Hyp othyroidism, Osteoporosis, Pancreatitis Denies: HIV, Chronic Kidney Disease - Surgical History Surgical History: Cholecystectomy, Pacemaker - Family History Family History: States: Unknown Family Hx - Social History Current smoker - smoking cessation education provided: No Alcohol: None Drugs: Denies - Home Medications Home Medications: Ambulatory Orders Medication Instructions Recorded Lisinopril [Zestril] 10 mg PO DAILY 09/19/17 MetFORMIN [glucoPHAGE] 500 mg PO BID 09/19/17 Metoprolol Succinate XL [Toprol XL] 50 mg PO DAILY 09/19/17 Multivitamin [Multi-Vitamin Daily] 1 tab PO DAILY 09/19/17 Rosuvastatin Calcium [Crestor] 10 mg PO HS 09/19/17 Digoxin [Digitek] 125 mcg PO QOTHERDAY #30 tablet 09/20/17 Levothyroxine [Synthroid] 50 mcg PO DAILY #30 tab 09/20/17 - Allergies Allergies/Adverse Reactions: Allergies Allergy/AdvReac Type Severity Reaction Status Date / Time No Known Allergies Allergy Verified 07/05/17 20:53 Review of Systems ROS Statement: Except As Marked, All Systems Reviewed And Found Negative Skin: Positive for: Other (Right sided laceration of forehead) Physical Exam - Reviewed Nursing Documentation Reviewed: Yes Vital Signs Reviewed: Yes - Physical Exam Appears: Positive for: Non-toxic, No Acute Distress Head Exam: Negative for: ATRAUMATIC (Laceration to right forehead with hematoma) ENT: Positive for: Normal ENT Inspection. Negative for: Other (septal hematoma) Neck: Positive for: Normal, Painless ROM (No tenderness), Supple Cardiovascular/Chest: Positive for: Regular Rate, Rhythm. Negative for: Murmur Respiratory: Positive for: Normal Breath Sounds. Negative for: Wheezing Gastrointestinal/Abdominal: Positive for: Normal Exam, Soft. Negative for: Tenderness Back: Positive for: Normal Inspection. Negative for: L CVA Tenderness, R CVA Tenderness Extremity: Positive for: Normal ROM, Tenderness (mild to right thumb medial aspect where half of fingernail tip is off. Mild tenderness to right shoulder). Negative for: Pedal Edema, Deformity (of right shoulder), Swelling, Other (laceration of right thumb) Neurologic/Psych: Positive for: Alert, Oriented (x3) - Laboratory Results Result Diagrams: 04/30/18 08:38 04/30/18 08:38 Interpretation Of Abn Labs: no acute - ECG ECG Rhythm: Positive for: Atrial Fibrillation O2 Sat by Pulse Oximetry: 100 (RA) Pulse Ox Interpretation: Normal - Radiology X-Ray: Read By Radiologist X-Ray Interpretation: No Acute Disease - CT Scan/US ct head Other Rad Studies (CT/US): Read By Radiologist Other Rad Interpretation: no acute - Progress ED Course And Treament: 1058: Stable. AAOx3. Pt. on elaquis. Will obs for head injury and delayed bleeding. Spoke with Dr. Townsend, who sutured pt. laceration. Pt. in rate controlled afib and has pacemaker. Spoke with [facility] resident who will admit. Pt. is private of Dr. Yeh. Medical Decision Making Medical Decision Making: Time: 739 Initial Plan: --CT Head W/O Contrast --ECG --Troponin --CMP --PTT --PT --NaCl 500 ml IV 100 mls/hr --Right Shoulder X-Ray 938 Right Shoulder X-Ray FINDINGS: BONES: Normal. No fracture. JOINTS: Normal. Glenohumeral and acromioclavicular joints preserved. No osteoarthritis. SOFT TISSUES: Normal. OTHER FINDINGS: None. IMPRESSION: Normal radiographs of the right shoulder. Scribe Attestation: Documented by Alejandra Chiu, acting as a scribe for Emmanuel Lyons MD. Provider Scribe Attestation: All medical record entries made by the Scribe were at my direction and personally dictated by me. I have reviewed the chart and agree that the record accurately reflects my personal performance of the history, physical exam, medical decision making, and the department course for this patient. I have also personally directed, reviewed, and agree with the discharge instructions and disposition. Disposition - Clinical Impression Clinical Impression: Head injury, Laceration - Patient ED Disposition Is Patient to be Admitted: No Counseled Patient/Family Regarding: Studies Performed, Diagnosis - Disposition Disposition Time: 11:00 Condition: FAIR - Pt Status Changed To: Hospital Disposition Of: Observation - POA Present On Arrival: Falls Or Trauma
[2018-04-30] MEDS ORDERED: Lidocaine 2% w Epi 1:100,000 Inj IJ ONE (08:22)
[2018-04-30] MEDS ORDERED: Lidocaine 1% w Epi 1:100,000 Inj ONE (08:22)
[2018-04-30 08:59] LABS: BASO % 0.2 % (0.0-2.0); EOS % 0.2 % (0.0-4.0); HEMOGLOBIN 12.1 g/dL (12.0-16.0); LYMPH # 0.8 K/uL (1.0-4.3); LYMPH % 6.5 % (20.0-40.0); MEAN CELL VOLUME 89.6 fl (81.0-99.0); MEAN CORPUSCULAR HEMOGLOBIN 30.8 pg (27.0-31.0); MEAN CORPUSCULAR HGB CONC 34.4 g/dL (33.0-37.0); MONO # 0.7 K/uL (0.0-0.8); MONO % 5.2 % (0.0-10.0); NEUT # 11.1 K/uL (1.8-7.0); NEUT % 87.9 % (50.0-75.0); NRBC % 0.1 % (0.0-0.0); PLATELET COUNT 271 K/uL (130-400); RBC 3.94 Mil/uL (3.80-5.20); RED CELL DISTRIBUTION WIDTH 13.9 % (11.5-14.5); WHITE BLOOD COUNT 12.7 K/uL (4.8-10.8)
[2018-04-30 09:00] LABS: ALB/GLOB RATIO 1.2 (1.0-2.1); ALT/SGPT 13 U/L (9-52); AST/SGOT 19 U/L (14-36); BLOOD UREA NITROGEN 18 mg/dl (7-17); CALCIUM 9.6 mg/dL (8.4-10.2); GFR NON-AFRICAN AMERICAN > 60
--- NOTE | 2018-04-30 09:58 | RAD ---
Date of service: 04/30/2018 PROCEDURE: Radiographs of the Right Shoulder HISTORY: shoulder pain COMPARISON: No prior. FINDINGS: BONES: Normal. No fracture. JOINTS: Normal. Glenohumeral and acromioclavicular joints preserved. No osteoarthritis. SOFT TISSUES: Normal. OTHER FINDINGS: None. IMPRESSION: Normal radiographs of the right shoulder.
[2018-04-30 11:16] LABS: INR 1.1
[2018-04-30 11:19] LABS: PARTIAL THROMBOPLASTIN TIME 30.9 Seconds (25.6-37.1)
[2018-04-30] MEDS ORDERED: Digoxin 125 mcg (0.125 mg) Tab PO SCH (11:45)
--- NOTE | 2018-04-30 11:50 | CP.PCM.HP ---
Addendum entered and electronically signed by Lila Yeh MD 05/02/18 13:56: I personally saw and examined pt in ER on 04/30/2018. I discussed case with the resident and reviewed the labs and imaging results. I verified history and physical and agree with residents findings and plan. Patient status post fall, baseline dementia same. Monitoring for consequences of fall, ensuring ability to ambulate safely and monitoring sodium. Addendum entered and electronically signed by Nora Mckenna MD 05/01/18 13:53: Hyponatremia -mildly low -likely 2/2 to chronic conditions vs medications -cont to monitor Original Note: History of Present Illness - History of Present Illness History of Present Illness: CC: fall HPI: 87 YO Female with PMHx of NIDDM, HTN, hypothyroidism, afib presents to [facility] ED via EMS after a ground level fall. This morning pt woke up to go to the bathroom, while getting up from the toilet, pt tripped on her pants and fell on the floor approx around 5AM. No LOC, but because of the fall patient felt weak and was not able to get up by herself. EMS was called and they brought patient to the hospital. Patient was awake, alert and oriented. Pt seen by bedside in ER, Son present. States that she feels well now. Endorsing minimal pain in her head and that her bleeding has stopped. Denies pain elsewhere. PMD: Lila Yeh PMHx: HTN, DM, HLD, A-fib (no anticoagulation 2/2 falls), AICD, hypothyroid, arthritis, heart failure PSHx: Cholecystectomy, Pacemaker 2011 SHx: Denies smoking, ETOH and illicit drug use FHx: lives with son, Family hx non-contributory, Son Bulmaro Victor [phone] Allergies: None Code: DNR/DNI Present on Admission - Present on Admission Any Indicators Present on Admission: No Review of Systems - Constitutional Constitutional: Headache. absent: Chills, Fever - EENT Eyes: absent: Blurred Vision, Change in Vision Nose/Mouth/Throat: absent: Nasal Trauma - Cardiovascular Cardiovascular: absent: Chest Pain, Dyspnea - Respiratory Respiratory: absent: Cough, Dyspnea - Gastrointestinal Gastrointestinal: absent: Abdominal Pain, Nausea, Vomiting - Neurological Neurological: absent: Dizziness, Loss of Vision, Syncope, Vertigo, Weakness Past Patient History - Past Medical History & Family History Past Medical History?: Yes - Past Social History Alcohol: None Drugs: Denies - CARDIAC Hx Atrial Fibrillation: Yes Hx Cardia Arrhythmia: Yes (A FIB) Hx Hypercholesterolemia: Yes Hx Hypertension: Yes Hx Pacemaker: Yes - PULMONARY Hx Respiratory Disorders: No - NEUROLOGICAL Hx Dementia: Yes - HEENT Hx HEENT Problems: No - RENAL Hx Chronic Kidney Disease: No - ENDOCRINE/METABOLIC Hx Hypothyroidism: Yes - HEMATOLOGICAL/ONCOLOGICAL Hx Anemia: Yes Hx Human Immunodeficiency Virus (HIV): No - INTEGUMENTARY Hx Dermatological Problems: No - MUSCULOSKELETAL/RHEUMATOLOGICAL Hx Arthritis: Yes Hx Osteoporosis: Yes - GASTROINTESTINAL Hx Gastritis: Yes Hx Pancreatitis: Yes - GENITOURINARY/GYNECOLOGICAL Hx Genitourinary Disorders: No - PSYCHIATRIC Hx Anxiety: Yes Hx Depression: Yes - SURGICAL HISTORY Hx Cholecystectomy: Yes - ANESTHESIA Hx Anesthesia: Yes Hx Anesthesia Reactions: No Hx Malignant Hyperthermia: No Meds Allergies/Adverse Reactions: Allergies Allergy/AdvReac Type Severity Reaction Status Date / Time No Known Allergies Allergy Verified 07/05/17 20:53 Physical Exam - Constitutional Appears: No Acute Distress, Other (smiling) - Head Exam Additional comments: Laceration to right forehead, approx 4cm, open with surrounding hematoma around the laceration - Eye Exam Eye Exam: EOMI, Normal appearance - ENT Exam ENT Exam: Mucous Membranes Moist - Respiratory Exam Respiratory Exam: Clear to Auscultation Bilateral, NORMAL BREATHING PATTERN. ab sent: Wheezes - Cardiovascular Exam Cardiovascular Exam: Irregular Rhythm, +S1, +S2, Systolic Murmur - GI/Abdominal Exam GI & Abdominal Exam: Normal Bowel Sounds, Soft. absent: Tenderness - Extremities Exam Extremities exam: Positive for: normal inspection. Negative for: calf tend erness, pedal edema - Neurological Exam Neurological exam: Alert, Oriented x3 - Psychiatric Exam Psychiatric exam: Normal Mood Results - Vital Signs Recent Vital Signs: Last Vital Signs Temp 97.1 F L 04/30/18 06:17 Pulse 72 04/30/18 06:17 Resp 16 04/30/18 06:17 BP 156/94 H 04/30/18 06:17 Pulse Ox 100 04/30/18 11:04 - Labs Result Diagrams: 04/30/18 08:38 04/30/18 08:38 Labs: Laboratory Results - last 24 hr 04/30/18 04/30/18 04/30/18 08:38 08:38 11:02 WBC 12.7 H D RBC 3.94 Hgb 12.1 Hct 35.3 MCV 89.6 D MCH 30.8 MCHC 34.4 RDW 13.9 Plt Count 271 MPV 8.0 Neut % (Auto) 87.9 H Lymph % (Auto) 6.5 L [place] % (Auto) 5.2 Eos % (Auto) 0.2 Baso % (Auto) 0.2 Neut # (Auto) 11.1 H Lymph # (Auto) 0.8 L [place] # (Auto) 0.7 Eos # (Auto) 0.0 Baso # (Auto) 0.0 Smear Path Review Cancelled PT 13.0 INR 1.1 APTT 30.9 Sodium 129 L Potassium 4.8 Chloride 94 L Carbon Dioxide 25 Anion Gap 15 BUN 18 H Creatinine 0.8 Est GFR ( Amer) > 60 Est GFR (Non-Af Amer) > 60 Random Glucose 154 H Calcium 9.6 Total Bilirubin 0.3 AST 19 ALT 13 Alkaline Phosphatase 53 Troponin I 0.0320 Total Protein 7.3 Albumin 4.0 Globulin 3.3 Albumin/Globulin Ratio 1.2 Assessment & Plan - Assessment and Plan (Free Text) Assessment: Assessment/Plan: 87 YO Female with PMHx of NIDDM, HTN, hypothyroidism, afib is admitted after a fall, head injury and laceration. Mechanical fall/Head injury -s/p ground level fall, head lac repaired in ED (suture) -CT head: Right fontal scalp contusion/laceration. No intracranial hemorrhage. Age related changes. -XR of the R shoulder: Normal radiographs of the right shoulder -EKG a fib with rate of 90; trops x 1 neg -using cane at baseline for ambulation -PT consulted Leukocytosis -likely 2/2 to acute stress -hemodynamically stable, afebrile -AM labs NIDDM -chronic, stable -c/w home meds: Metformin 500 BID -low dose correction -hypoglycemia protocol HTN/Afib -chronic, controlled -Echo 10/2015: normal LV wall motion, EF 60-65% -s/p pacemaker -c/w home meds Hypothyroidism -chronic, controlled -c/w home meds DVT -on eliquis
[2018-04-30 12:08] LABS: BANDS 1 % (0-2); LYMPHOCYTE 11 % (20-50); MONOCYTE 3 % (0-10); NEUTROPHIL 85 % (42-75); PLATELET ESTIMATE NORMAL (NORMAL); TOTAL CELLS COUNTED 100
[2018-04-30] MEDS ORDERED: Digoxin 125 mcg (0.125 mg) Tab ONE (12:13)
[2018-04-30] MEDS: Metoprolol Succinate 50 mg XL Tab PO SCH (12:14)
[2018-04-30] MEDS ORDERED: Pantoprazole 40 mg EC Tab PO ONE (12:19)
[2018-04-30] MEDS ORDERED: Glucagon Recombinant 1 mg Inj IM PRN (12:20)
[2018-04-30] MEDS ORDERED: Dextrose 50% SYRINGE Inj (50 ml) IV PRN (12:20)
--- NOTE | 2018-04-30 12:24 | CT ---
Date of service: 04/30/2018 PROCEDURE: CT HEAD WITHOUT CONTRAST. HISTORY: headache COMPARISON: 08/22/2017 TECHNIQUE: Axial computed tomography images were obtained through the head/brain without intravenous contrast. Radiation dose: Total exam DLP = 841.49 mGy-cm. This CT exam was performed using one or more of the following dose reduction techniques: Automated exposure control, adjustment of the mA and/or kV according to patient size, and/or use of iterative reconstruction technique. FINDINGS: HEMORRHAGE: No intracranial hemorrhage. BRAIN: No mass effect or edema. Minimal diffuse age-appropriate cerebral atrophy. Mild chronic periventricular white matter ischemic change. No evidence of acute infarct. VENTRICLES: Minimal ventricular dilatation, proportionate to the degree of surrounding parenchymal atrophy. No midline shift. CALVARIUM: No fracture. Right frontal scalp contusion/laceration. PARANASAL SINUSES: Unremarkable as visualized. No significant inflammatory changes. MASTOID AIR CELLS: Unremarkable as visualized. No inflammatory changes. OTHER FINDINGS: None. IMPRESSION: Right frontal scalp contusion/laceration. No intracranial hemorrhage. Age related involutional changes.
[2018-04-30] MEDS ORDERED: Insulin Regular 100 units/ml ONE (16:46)
[2018-04-30] MEDS: Insulin Regular 100 units/ml SC SCH ×2 (16:50→22:17)
[2018-04-30] MEDS ORDERED: Influenza Vaccine 60 MCG/0.5 ML SYR (3 yr & up) IM ONE (19:59)
--- NOTE | 2018-04-30 21:09 | CARD ---
APPROVED REPORT Date of service: 04/30/2018 EKG Measurement Heart [id number] <Conclusion> Atrial fibrillation Nonspecific ST and T wave abnormality Abnormal ECG
[2018-04-30] MEDS ORDERED: Latanoprost 0.005% Opht SOUTION OU SCH (22:00)
[2018-05-01] MEDS ORDERED: Levothyroxine 50 MCG TAB PO SCH (06:30)
[2018-05-01 06:36] LABS: BASO % 0.4 % (0.0-2.0); EOS % 0.5 % (0.0-4.0); HEMOGLOBIN 11.6 g/dL (12.0-16.0); LYMPH % 10.5 % (20.0-40.0); MEAN CELL VOLUME 89.3 fl (81.0-99.0); MEAN CORPUSCULAR HEMOGLOBIN 31.1 pg (27.0-31.0); MEAN CORPUSCULAR HGB CONC 34.9 g/dL (33.0-37.0); MEAN PLATELET VOLUME 8.4 fl (7.2-11.7); MONO % 10.6 % (0.0-10.0); NEUT # 7.5 K/uL (1.8-7.0); RBC 3.72 Mil/uL (3.80-5.20); RED CELL DISTRIBUTION WIDTH 14.1 % (11.5-14.5); WHITE BLOOD COUNT 9.6 K/uL (4.8-10.8)
[2018-05-01 07:04] LABS: BLOOD UREA NITROGEN 17 mg/dl (7-17); CALCIUM 9.1 mg/dL (8.4-10.2); GFR NON-AFRICAN AMERICAN 59
[2018-05-01] MEDS: Insulin Regular 100 units/ml SC SCH ×2 (08:10→11:10)
[2018-05-01] MEDS ORDERED: Pantoprazole 40 mg EC Tab PO SCH (09:00)
--- NOTE | 2018-05-01 09:53 | CP.PCM.DIS ---
Addendum entered and electronically signed by Lila Yeh MD 05/02/18 14:07: I personally saw and examined pt on 05/01/2018. I discussed case with the resident and agree with residents findings and plan with following input - pt stable post fall - laceration clean and dry; baseline cognition deficits - stable; patient can ambulate with assistance. Hyponatremia from 129-130. Reviewed medications that can cause SIADH (Cl also decreased) - discussed with son about stopping Omeprazole and repeating labs next week. Will continue to monitor and work-up if continues - the hyponatremia. Continue other home meds at present. Follow up BMP. Original Note: Provider - Provider Date of Admission: 04/30/18 11:03 Attending physician: Lila Yeh MD Time Spent in preparation of Discharge (in minutes): 35 Diagnosis - Discharge Diagnosis (1) Head injury Status: Acute (2) Laceration Status: Acute (3) Hypothyroidism Status: Chronic (4) Hyponatremia Status: Chronic (5) HTN (hypertension) Status: Chronic (6) DM2 (diabetes mellitus, type 2) Status: Chronic Hospital Course - Lab Results Lab Results: Most Recent Lab Values WBC 9.6 K/uL (4.8-10.8) 05/01/18 04:21 RBC 3.72 Mil/uL (3.80-5.20) L 05/01/18 04:21 Hgb 11.6 g/dL (12.0-16.0) L 05/01/18 04:21 Hct 33.2 % (34.0-47.0) L 05/01/18 04:21 MCV 89.3 fl (81.0-99.0) 05/01/18 04:21 MCH 31.1 pg (27.0-31.0) H 05/01/18 04:21 MCHC 34.9 g/dL (33.0-37.0) 05/01/18 04:21 RDW 14.1 % (11.5-14.5) 05/01/18 04:21 Plt Count 255 K/uL (130-400) 05/01/18 04:21 MPV 8.4 fl (7.2-11.7) 05/01/18 04:21 Neut % (Auto) 78.0 % (50.0-75.0) H 05/01/18 04:21 Lymph % (Auto) 10.5 % (20.0-40.0) L 05/01/18 04:21 Knott % (Auto) 10.6 % (0.0-10.0) H 05/01/18 04:21 Eos % (Auto) 0.5 % (0.0-4.0) 05/01/18 04:21 Baso % (Auto) 0.4 % (0.0-2.0) 05/01/18 04:21 Neut # (Auto) 7.5 K/uL (1.8-7.0) H 05/01/18 04:21 Lymph # (Auto) 1.0 K/uL (1.0-4.3) 05/01/18 04:21 Knott # (Auto) 1.0 K/uL (0.0-0.8) H 05/01/18 04:21 Eos # (Auto) 0.0 K/uL (0.0-0.7) 05/01/18 04:21 Baso # (Auto) 0.0 K/uL (0.0-0.2) 05/01/18 04:21 Neutrophils % (Manual) 85 % (42-75) H 04/30/18 08:38 Band Neutrophils % 1 % (0-2) 04/30/18 08:38 Lymphocytes % (Manual) 11 % (20-50) L 04/30/18 08:38 Monocytes % (Manual) 3 % (0-10) 04/30/18 08:38 Platelet Estimate Normal (NORMAL) 04/30/18 08:38 RBC Morphology Normal (NORMAL) 04/30/18 08:38 Smear Path Review Cancelled 04/30/18 08:38 PT 13.0 Seconds (9.8-13.1) 04/30/18 11:02 INR 1.1 04/30/18 11:02 APTT 30.9 Seconds (25.6-37.1) 04/30/18 11:02 Sodium 130 mmol/l (132-148) L 05/01/18 04:21 Potassium 4.6 MMOL/L (3.6-5.0) 05/01/18 04:21 Chloride 94 mmol/L (98-107) L 05/01/18 04:21 Carbon Dioxide 27 mmol/L (22-30) 05/01/18 04:21 Anion Gap 14 (10-20) 05/01/18 04:21 BUN 17 mg/dl (7-17) 05/01/18 04:21 Creatinine 0.9 mg/dl (0.7-1.2) 05/01/18 04:21 Est GFR ( Amer) > 60 05/01/18 04:21 Est GFR (Non-Af Amer) 59 05/01/18 04:21 POC Glucose (mg/dL) 160 mg/dL (65-110) H 04/30/18 16:49 Random Glucose 136 mg/dL (65-105) H 05/01/18 04:21 Calcium 9.1 mg/dL (8.4-10.2) 05/01/18 04:21 Total Bilirubin 0.3 mg/dl (0.2-1.3) 04/30/18 08:38 AST 19 U/L (14-36) 04/30/18 08:38 ALT 13 U/L (9-52) 04/30/18 08:38 Alkaline Phosphatase 53 U/L (38-126) 04/30/18 08:38 Troponin I 0.0730 ng/mL (0.00-0.120) 04/30/18 16:42 Total Protein 7.3 G/DL (6.3-8.2) 04/30/18 08:38 Albumin 4.0 g/dL (3.5-5.0) 04/30/18 08:38 Globulin 3.3 gm/dL (2.2-3.9) 04/30/18 08:38 Albumin/Globulin Ratio 1.2 (1.0-2.1) 04/30/18 08:38 - Hospital Course Hospital Course: 87 YO Female with PMHx of NIDDM, HTN, hypothyroidism, afib (pacemaker) is admitted after a fall, head injury and laceration. Pt experienced a ground level fall at home when she tripped and obtained a laceration to her head. CT of the head was negative for any intracranial hemorrhage and showed right fontal scalp contusion/laceration. On blood work, findings sig for hyponatremia, likely 2/2 to Meds and chronic conditions. Will wean off PPI at this time. PT/OT was cons ulted, recommended TCU. Patient currently remains hemodynamically stable and per family is back to her baseline. Will d/c patient home with home health and home PT; follow up with PMD Dr. Yeh on 05/07/18 @ 9:40AM. Discharge Exam - Head Exam Head Exam: absent: ATRAUMATIC Additional comments: Laceration to right forehead, approx 4cm, closed with absorbable sutures. Surrounding hematoma around the laceration, and edema-- improving - Eye Exam Eye Exam: EOMI, Normal appearance - ENT Exam ENT Exam: Mucous Membranes Moist - Respiratory Exam Respiratory Exam: Clear to PA & Lateral, NORMAL BREATHING PATTERN. absent: Wheezes - Cardiovascular Exam Cardiovascular Exam: REGULAR RHYTHM, +S1, +S2 - GI/Abdominal Exam GI & Abdominal Exam: Normal Bowel Sounds, Soft. absent: Tenderness - Extremities Exam Extremities exam: normal inspection - Neurological Exam Neurological exam: Alert Discharge Plan - Follow Up Plan Condition: FAIR Disposition: HOME/ ROUTINE Patient education suggested?: Yes Instructions: Minor Head Injury (DC) Additional Instructions: Please follow up with PMD Dr. Yeh on 05/07/18 @ 9:40 AM ER precautions reviewed with patient and family, Fever over 100.4, chest pain, AMS, shortness of breath.
[2018-05-01 10:35] VITALS: RESP 18
[2018-05-01] MEDS: Metoprolol Succinate 50 mg XL Tab PO SCH (11:13)
[2018-05-01 15:28] LABS: URINE BACTERIA RARE (<OCC); URINE BILIRUBIN NEGATIVE (NEGATIVE); URINE BLOOD NEGATIVE (NEGATIVE); URINE CLARITY CLEAR (Clear); URINE COLOR YELLOW (YELLOW); URINE GLUCOSE (UA) NEG (Normal); URINE LEUKOCYTE ESTERASE NEG Leu/uL (Negative); URINE PROTEIN 100 mg/dL (NEGATIVE); URINE UROBILINOGEN 0.2-1.0 mg/dL (0.2-1.0)
[2018-05-01 15:42] VITALS: BP 172/79; PULSE 73; TEMP 97.8; O2SAT 99
== END 2018-05-01 17:40 | disposition home or self-care (01) ==
LOC: H.ER 06:03 → H.ERHOLD 11:03 → H.TEL 18:46
PROVIDERS: ADMIT Family Medicine; ATTEND Family Medicine
DX: S01.81XA Laceration without foreign body of other part of head, initial encounter (principal); S61.011A Laceration without foreign body of right thumb without damage to nail, initial encounter; Z23 Encounter for immunization; M81.0 Age-related osteoporosis without current pathological fracture; Z95.0 Presence of cardiac pacemaker; I48.91 Unspecified atrial fibrillation; I10 Essential (primary) hypertension; E78.00 Pure hypercholesterolemia, unspecified; F03.90 Unspecified dementia, unspecified severity, without behavioral disturbance, psychotic disturbance, mood disturbance, and anxiety; E03.9 Hypothyroidism, unspecified; F32.9 Major depressive disorder, single episode, unspecified; K29.70 Gastritis, unspecified, without bleeding; F41.9 Anxiety disorder, unspecified; E11.9 Type 2 diabetes mellitus without complications; E87.1 Hypo-osmolality and hyponatremia; E78.5 Hyperlipidemia, unspecified; D72.829 Elevated white blood cell count, unspecified; W01.0XXA Fall on same level from slipping, tripping and stumbling without subsequent striking against object, initial encounter; Y92.002 Bathroom of unspecified non-institutional (private) residence as the place of occurrence of the external cause
CPT/HCPCS: 36415; 70450; 73030; 80048; 80053; 81003; 82948; 84484; 85025; 85610; 85730; 90674; 93005; 96372; 97162; 99285; G0008; G0378; G8978; G8979; J7040

== ENCOUNTER 2018-07-30 03:34 | Emergency (ER) | payer MEDICARE, MEDICAID ==
[2018-07-30 03:35] VITALS: PULSE 82
[2018-07-30 03:49] VITALS: BMI 17.2
[2018-07-30 03:55] VITALS: RESP 18; TEMP 97.6; O2SAT 100
[2018-07-30] MEDS ORDERED: Lidocaine 1% w Epi 1:100,000 Inj ONE (04:05)
--- NOTE | 2018-07-30 05:34 | ED PDOC ---
HPI: Trauma/Fall - HPI Time Seen by Provider: 07/30/18 03:50 Chief Complaint (Nursing): Trauma Chief Complaint (Provider): Trauma History Per: Family History/Exam Limitations: no limitations Onset/Duration Of Symptoms: Other (ROENTGENOLOGIST) Location Of Injury: Left: Face (forehead) Associated Symptoms: denies: LOC Additional Complaint(s): 87 y/o female with a history of dementia brought in by family for evaluation of a laceration to left forehead s/p a fall ROENTGENOLOGIST. Family states she often has sundowning at night and difficulty sleeping. Per family, patient was trying to get out of bed and has a mattress next to her bed that she was standing on top of. She tripped and fell hurting her head. Family denies any loss of conscio usness and vomiting. Immunizations are UTD. PMD: Lila Yeh Past Medical History Reviewed: Historical Data, Nursing Documentation, Vital Signs Vital Signs: Last Vital Signs Temp 97.6 F 07/30/18 03:49 Pulse 80 07/30/18 03:49 Resp 18 07/30/18 03:49 BP 159/70 H 07/30/18 03:49 Pulse Ox 100 07/30/18 03:49 - Medical History PMH: Anemia, Anxiety, Arthritis, Atrial Fibrillation, Cardia Arrhythmia (A FIB), Dementia, Depression, Diabetes, Gastritis, HTN, Hypercholesterolemia, Hypothyroidism, Osteoporosis, Pancreatitis Denies: HIV, Chronic Kidney Disease - Surgical History Surgical History: Cholecystectomy, Pacemaker - Family History Family History: States: Unknown Family Hx - Social History Current smoker - smoking cessation education provided: No Alcohol: None Drugs: Denies - Home Medications Home Medications: Ambulatory Orders Medication Instructions Recorded Lisinopril [Zestril] 10 mg PO DAILY 09/19/17 Metoprolol Succinate XL [Toprol XL] 50 mg PO DAILY 09/19/17 Rosuvastatin Calcium [Crestor] 10 mg PO HS 09/19/17 Levothyroxine [Synthroid] 50 mcg PO DAILY #30 tab 09/20/17 Apixaban [Eliquis] 2.5 mg PO Q12 04/30/18 Digoxin [Digitek] 125 mcg PO Q48H 04/30/18 Latanoprost [Xalatan] 1 drop EACHEYE HS 04/30/18 Pantoprazole Sodium [Protonix] 40 mg PO DAILY 04/30/18 Turmeric Root Extract [Turmeric] 1 cap PO DAILY 04/30/18 metFORMIN [glucOPHAGE] 500 mg PO BID 04/30/18 - Allergies Allergies/Adverse Reactions: Allergies Allergy/AdvReac Type Severity Reaction Status Date / Time No Known Allergies Allergy Verified 07/30/18 03:49 Review of Systems ROS Statement: Except As Marked, All Systems Reviewed And Found Negative Gastrointestinal: Negative for: Vomiting Skin: Positive for: Other (Laceration to left forehead) Neurological: Negative for: Other (Loss of consciousness) Physical Exam - Reviewed Nursing Documentation Reviewed: Yes Vital Signs Reviewed: Yes - Physical Exam Appears: Positive for: No Acute Distress. Negative for: Well (Chronic ill appearing) Head Exam: Positive for: NORMOCEPHALIC. Negative for: ATRAUMATIC (1cm x 1 cm x 1 cm stellate laceration to left forehead) Skin: Positive for: Normal Color, Warm, Dry Eye Exam: Positive for: Normal appearance, EOMI, PERRL Neck: Positive for: Normal, Painless ROM, Supple Cardiovascular/Chest: Positive for: Regular Rate, Rhythm. Negative for: Murmur Respiratory: Positive for: Normal Breath Sounds. Negative for: Wheezing Gastrointestinal/Abdominal: Positive for: Normal Exam, Soft. Negative for: Tenderness Back: Positive for: Normal Inspection. Negative for: L CVA Tenderness, R CVA Tenderness Extremity: Positive for: Normal ROM. Negative for: Pedal Edema, Deformity Neurologic/Psych: Positive for: Alert, therapy manager II-XII. Negative for: Oriented (demented), Motor/Sensory Deficits, Aphasia, Facial Droop - ECG O2 Sat by Pulse Oximetry: 100 (RA) Pulse Ox Interpretation: Normal Medical Decision Making Medical Decision Makin A/P: 87 y/o female with dementia presents with fall --Patient is not on blood thinners --Will obtain imaging 0554 CT Head Findings: Left frontal subgaleal soft tissue hematoma. There is normal configuration of sella turcica. There are no intra or extra- axial collections. There is no mass effect or midline shift. There is no evidence of hematoma formation. No hydrocephalus is present. The ventricles are symmetrical. No abnormal calcifications are present. There is diffuse age-appropriate cerebellar and cerebral atrophy with proportionally dilated ventricles and cortical sulci. There are bilateral periventricular and subcortical white matter hypolucencies compatible with mild chronic microvascular disease. Otherwise, no significant focal abnormalities are seen either in the posterior fossa or supratentorial compartment. IMPRESSION: 1. Age-appropriate cerebellar and cerebral atrophy. 2. Mild chronic microvascular disease. 3. No evidence of acute intracranial pathology. 4. Left frontal subgaleal soft tissue hematoma/emphysema. 0558 CT C-Spine Findings: Mild osteopenia of the bones. There are diffuse spondylotic changes. Findings are demonstrated by disc space narrowing, osteophyte formation and degenerative endplate changes. Facet joint arthropathy is noted. No fracture or dislocation is seen. No aggressive bone lesion is noted. Moderate other level degenerative disc disease more prominent from C3-C7. Impression: Spondylosis. Multilevel facet joint arthropathy. No acute bone pathology. Advised family of results Explained to bring patient back or to PMD in 10 - 14 days Stable for discharge Scribe Attestation: Documented by Alejandra Chiu, acting as a scribe for Jose Zhu MD. Provider Scribe Attestation: All medical record entries made by the Scribe were at my direction and personally dictated by me. I have reviewed the chart and agree that the record accurately reflects my personal performance of the history, physical exam, medical decision making, and the department course for this patient. I have also personally directed, reviewed, and agree with the discharge instructions and disposition. Procedures - Laceration/Wound Repair Left Upper Head Wound's Depth, Shape: superficial Wound Explored: clean Anesthesia: 1% Lidocaine, Lidocaine w/ Epi Wound Debrided: minimal Wound Repaired With: Sutures Suture Size/Type: 6:0 Number of Sutures: 4 Layer Closure?: No Wound Complexity: Simple Disposition - Clinical Impression Clinical Impression: Head injury - Disposition Referrals: Lila Yeh MD [Staff Provider] - Disposition: Routine/Home Disposition Time: 06:00 Condition: STABLE Instructions: Closed Head Injury, Laceration Repair With Stitches (DC) Forms: [employer] (I[place]ic)
[2018-07-30 06:53] VITALS: BP 137/65; PULSE 89
--- NOTE | 2018-07-30 08:42 | CT ---
Date of service: 07/30/2018 PROCEDURE: CT HEAD WITHOUT CONTRAST. HISTORY: fall COMPARISON: None available. TECHNIQUE: Axial computed tomography images were obtained through the head/brain without intravenous contrast. Radiation dose: Total exam DLP = 826.47 mGy-cm. This CT exam was performed using one or more of the following dose reduction techniques: Automated exposure control, adjustment of the mA and/or kV according to patient size, and/or use of iterative reconstruction technique. FINDINGS: HEMORRHAGE: No intracranial hemorrhage. BRAIN: No mass effect or edema. Moderate diffuse age-appropriate atrophy. Moderate patchy and confluent periventricular and deep/subcortical white matter lucency consistent with microvascular white matter ischemic change. No evidence of acute infarct. VENTRICLES: Unremarkable. No hydrocephalus. CALVARIUM: No fracture. Left frontal scalp wound with subcutaneous gas. PARANASAL SINUSES: Unremarkable as visualized. No significant inflammatory changes. MASTOID AIR CELLS: Unremarkable as visualized. No inflammatory changes. OTHER FINDINGS: None. IMPRESSION: No intracranial mass, hemorrhage or evidence of acute infarct. Age related atrophy and chronic white matter ischemic change. Left frontal scalp wound noted. The preliminary findings for this examination were reported by [facility] at 5:54 a.m. on 07/30/2018. There is concurrence of this report with the preliminary findings.
--- NOTE | 2018-07-30 08:52 | CT ---
Date of service: 07/30/2018 PROCEDURE: CT Cervical Spine without contrast HISTORY: fall, head injury COMPARISON: None available. TECHNIQUE: Axial computed tomography images were obtained of the cervical spine without the use of intravenous contrast. Coronal and sagittal reformatted images were created and reviewed. Radiation dose: Total exam DLP = 174.32 mGy-cm. This CT exam was performed using one or more of the following dose reduction techniques: Automated exposure control, adjustment of the mA and/or kV according to patient size, and/or use of iterative reconstruction technique. FINDINGS: VERTEBRAE: The vertebral bodies are maintained in height. Normal vertebral alignment is maintained. There is minimal levo scoliotic curvature of the cervical spine. The atlantoaxial articulation and odontoid process are intact. There is multilevel bilateral degenerative facet arthropathy, right greater than left. DISCS/SPINAL CANAL/NEURAL FORAMINA: There is loss in height of the C5-6 intervertebral disc space consistent with degenerative disc disease. There is a large Schmorl's node in the inferior C5 vertebral endplate. PARASPINAL SOFT TISSUES: Unremarkable. OTHER FINDINGS: None. IMPRESSION: No fracture/dislocation. Degenerative disc disease at C5-6. Minimal levoscoliosis. The preliminary findings for this examination were reported by [facility] at 5:50 a.m. on 07/30/2018. There is concurrence of this report with the preliminary findings.
--- NOTE | 2018-07-30 10:42 | RAD ---
Date of service: 07/30/2018 PROCEDURE: Radiographs of the pelvis. HISTORY: fall COMPARISON: None. FINDINGS: BONES: Pelvic Bones: Unremarkable. Hips: Grossly unremarkable. JOINTS: Sacroiliac Joints: Unremarkable. Pubic Symphysis: Unremarkable. OTHER FINDINGS: Calcified uterine fibroid noted centrally within the pelvis. IMPRESSION: No acute fracture
--- NOTE | 2018-07-30 10:44 | RAD ---
Date of service: 07/30/2018 PROCEDURE: CHEST RADIOGRAPH, 1 VIEW HISTORY: fall COMPARISON: 09/19/2017 FINDINGS: LUNGS: Clear. PLEURA: No pneumothorax or pleural fluid seen. CARDIOVASCULAR: There is atherosclerotic calcification of the thoracic aorta. Normal heart size. Permanent pacemaker. OSSEOUS STRUCTURES: No significant abnormalities. VISUALIZED UPPER ABDOMEN: Normal. OTHER FINDINGS: None. IMPRESSION: No active disease.
== END 2018-07-30 06:54 | disposition home or self-care (01) ==
LOC: H.ER 03:34
DX: E11.9 Type 2 diabetes mellitus without complications (principal); E03.9 Hypothyroidism, unspecified; F03.90 Unspecified dementia, unspecified severity, without behavioral disturbance, psychotic disturbance, mood disturbance, and anxiety; I10 Essential (primary) hypertension; Z86.59 Personal history of other mental and behavioral disorders; M81.0 Age-related osteoporosis without current pathological fracture; Z95.0 Presence of cardiac pacemaker; Z79.84 Long term (current) use of oral hypoglycemic drugs; Z79.01 Long term (current) use of anticoagulants; S09.90XA Unspecified injury of head, initial encounter

== ENCOUNTER 2018-08-15 18:07 | Inpatient (IN) | payer MEDICARE, MEDICAID ==
[2018-08-15 18:08] VITALS: BMI 17.2
[2018-08-15] MEDS ORDERED: Sodium Chloride 0.9% 1,000 ML IV STA (20:03)
--- NOTE | 2018-08-15 20:36 | ED PDOC ---
HPI: Altered Mental Status Time Seen by Provider: 08/15/18 19:46 Chief Complaint (Nursing): Altered Mental Status Chief Complaint (Provider): Altered Mental Status History Per: Patient History/Exam Limitations: Clinical Condition Current Symptoms Are (Timing): Still Present Additional Complaint(s): 87 year old female presents to the ED with son due to worsening altered mental status and delirium. Patient lives with her son. Patient has borderline dementia which worsens at night typically and at baseline, patient is able to eat assisted by her son. She responds to questions but frequently is confused by date and location. In the last 24 hours, patient is refusing to eat at all and has been moaning and making incomprehensible sounds. When she does speak, she states someone is trying to hurt her. Patient has no known fever, signs of trauma, or noticeable change in bowel or bladder habits. PMD: Lila Bolton Past Medical History Reviewed: Historical Data, Nursing Documentation, Vital Signs Vital Signs: Last Vital Signs Temp 97.9 F 08/15/18 18:22 Pulse 99 H 08/15/18 18:22 Resp 20 08/15/18 18:22 BP 155/77 H 08/15/18 18:22 Pulse Ox 100 08/15/18 18:22 - Medical History PMH: Anemia, Anxiety, Arthritis, Atrial Fibrillation, Cardia Arrhythmia (A FIB), Dementia, Depression, Diabetes, Gastritis, HTN, Hypercholesterolemia, Hypothyroidism, Osteoporosis, Pancreatitis Denies: HIV, Chronic Kidney Disease - Surgical History Surgical History: Cholecystectomy, Pacemaker - Family History Family History: States: Unknown Family Hx - Home Medications Home Medications: Ambulatory Orders Medication Instructions Recorded RX: Lisinopril [Zestril] 10 mg PO DAILY 09/19/17 RX: Metoprolol Succinate XL 50 mg PO DAILY 09/19/17 [Toprol XL] RX: Rosuvastatin Calcium [Crestor] 10 mg PO HS 09/19/17 RX: Levothyroxine [Synthroid] 50 mcg PO DAILY #30 tab 09/20/17 RX: Apixaban [Eliquis] 2.5 mg PO Q12 04/30/18 RX: Digoxin [Digitek] 125 mcg PO Q48H 04/30/18 RX: Latanoprost [Xalatan] 1 drop EACHEYE HS 04/30/18 RX: Pantoprazole Sodium [Protonix] 40 mg PO DAILY 04/30/18 RX: Turmeric Root Extract 1 cap PO DAILY 04/30/18 [Turmeric] RX: metFORMIN [glucOPHAGE] 500 mg PO BID 04/30/18 - Allergies Allergies/Adverse Reactions: Allergies Allergy/AdvReac Type Severity Reaction Status Date / Time No Known Allergies Allergy Verified 07/30/18 03:49 Review of Systems Review Of Systems: ROS cannot be obtained secondary to pt's inabilty to answer questions. Constitutional: Negative for: Fever Neurological: Positive for: Altered Mental Status Physical Exam - Reviewed Nursing Documentation Reviewed: Yes Vital Signs Reviewed: Yes - Physical Exam Appears: Positive for: Non-toxic, No Acute Distress (Frail; mildly agitated but not violent and not in obvious threat to self or others; not following direct commands or answering questions) Head Exam: Positive for: ATRAUMATIC, NORMOCEPHALIC Skin: Positive for: Normal Color, Warm, Dry. Negative for: Rash Eye Exam: Positive for: Normal appearance Neck: Positive for: Normal, Painless ROM Cardiovascular/Chest: Positive for: Regular Rate, Rhythm Respiratory: Positive for: Normal Breath Sounds. Negative for: Wheezing, Respiratory Distress Gastrointestinal/Abdominal: Positive for: Normal Exam, Soft. Negative for: Tenderness Extremity: Positive for: Normal ROM Neurologic/Psych: Positive for: Alert Comments: Patient is in an adult diaper; no signs of trauma - Laboratory Results Result Diagrams: 08/15/18 21:40 08/15/18 21:40 - ECG O2 Sat by Pulse Oximetry: 100 (RA) Pulse Ox Interpretation: Normal Medical Decision Making Medical Decision Making: Initial Impression: workup for acute worsening delirium r/o infectious process Initial Plan: --CT brain --Haldol to calm patient and allow for blood draw and CT brain Patient followed by Dr. Lila Yeh. Patient to be admitted to her for further evaluation. 2229 EKG show Afib. Labs show elevated lactate and elevated BUN but no signs of infection. Brain CT shows no acute abnormality. Pt to be admitted to Dr. Yeh on telemetry floor and has been followed by medicine resident production reproduction manager. Scribe Attestation: Documented by Gabo Garcia acting as a scribe for Regina Hannon MD. Provider Scribe Attestation: All medical record entries made by the Scribe were at my direction and personally dictated by me. I have reviewed the chart and agree that the record accurately reflects my personal performance of the history, physical exam, medical decision making, and the department course for this patient. I have also personally directed, reviewed, and agree with the discharge instructions and disposition. Disposition - Clinical Impression Clinical Impression: Atrial fibrillation, Altered mental status - Disposition Disposition Time: 23:00 Condition: STABLE
[2018-08-15 21:59] LABS: BASO % 0.6 % (0.0-2.0); EOS # 0.1 K/uL (0.0-0.7); HEMOGLOBIN 12.4 g/dL (12.0-16.0); LYMPH # 1.7 K/uL (1.0-4.3); LYMPH % 24.5 % (20.0-40.0); MEAN CELL VOLUME 89.6 fl (81.0-99.0); MEAN CORPUSCULAR HEMOGLOBIN 30.1 pg (27.0-31.0); MEAN CORPUSCULAR HGB CONC 33.6 g/dL (33.0-37.0); MONO # 0.5 K/uL (0.0-0.8); MONO % 7.4 % (0.0-10.0); NEUT # 4.6 K/uL (1.8-7.0); NEUT % 66.5 % (50.0-75.0); NRBC % 0.1 % (0.0-0.0); RBC 4.13 Mil/uL (3.80-5.20); RED CELL DISTRIBUTION WIDTH 15.1 % (11.5-14.5); WHITE BLOOD COUNT 6.9 K/uL (4.8-10.8)
[2018-08-15 22:01] LABS: PROTHROMBIN TIME 11.9 Seconds (9.8-13.1)
[2018-08-15 22:03] LABS: PARTIAL THROMBOPLASTIN TIME 30.9 Seconds (25.6-37.1)
[2018-08-15 22:07] LABS: VENOUS BLOOD GAS BASE EXCESS -0.6 mmol/L (0.0-2.0); VENOUS BLOOD GAS PCO2 24 mmHg (40-60); VENOUS BLOOD GAS PO2 29 mm/Hg (30-55); VENOUS BLOOD PH 7.56 (7.32-7.43)
[2018-08-15 22:10] LABS: ALB/GLOB RATIO 1.2 (1.0-2.1); ALBUMIN 4.4 g/dL (3.5-5.0); ALT/SGPT 19 U/L (9-52); AST/SGOT 21 U/L (14-36); BLOOD UREA NITROGEN 35 mg/dl (7-17); CALCIUM 10.3 mg/dL (8.4-10.2); GFR NON-AFRICAN AMERICAN 53
[2018-08-15 22:21] LABS: B-TYPE NATRIURETIC PEPTIDE 2130 pg/ml (0-900)
--- NOTE | 2018-08-16 01:24 | CP.PCM.HP ---
History of Present Illness - History of Present Illness History of Present Illness: 87 yo F with atrial fibrillation, hypertension, hypothyroidism, NIDDM type 2, dementia, recent onset seizure disorder brought into ED by son and daughter for worsening AMS from baseline and delirium. Pt has baseline dementia, however son and daughter state that for the past 24 hrs she has been worse, has not been eating, has appeared more confused and is talking less than normal, making incomprehensible sounds and moaning when son tries to help her up. Family states that she often needs assistance walking and standing, but that she is sometimes capable of climbing out of bed and has fallen in the past. In ED, she received haldol to facilitate head CT; when examined in ED after that she was calm, able to answer some questions, AAOx1 to self, but not to place or time. Was able to say that the people next to her were her children. Review of past eCW encounters reveals that pt had recent admission at [facility] for seizures and has been started on keppra 250mg BID; which son states she has been taking at home. She is on pureed diet. According to family - she has not been short of breath, has not complained of chest pain, has not had issues voiding/stooling. PMD: Dr. Lila Yeh PMHx: HTN, DM, HLD, A-fib (no anticoagulation 2/2 falls), AICD, hypothyroidism, arthritis PSHx: cholecystectomy, Pacemaker 2011 SHx: Denies smoking, ETOH and illicit drug use FHx: lives with son, family hx non-contributory, son Bulmaro Victor [phone] Allergies: None Meds: meds reviewed with son, who is sales support coordinator; Digoxin 0.125 mg every other day, levothyroxine 50 mcg daily, lisinopril 10 mg daily, metformin 500 mg BID, metoprolol succinate 50 mg daily, atorvastatin 40 mg daily, keppra 250 mg BID, Seroquel 37.5 mg nightly IN ED: Vitals: BP 155/77, HR 99, RR 20, T 97.9, O2 sat 100 on room air CBC shows no leukocytosis CMP reveals BUN 35 (above baseline of 18 for the last year), Cr 1.0 at baseline, elevated Ca Troponin neg proBNP elevated at 2130; no comparison available; review of EMR shows last echo 10/2015: normal LV wall motion, EF 60-65% Lactate 2.6 CXR did now show cardiomegaly, infiltrates, pleural effusions Urinalysis, urine cultures, blood cultures ordered Head CT w/o contrast, comparison to 07/30/18; mild cortical atrophy, unchanged; mild microvascular ischemic disease, unchanged; no CT evidence for acute intracranial abnormalities. Present on Admission - Present on Admission Any Indicators Present on Admission: No Review of Systems - Review of Systems Systems not reviewed;Unavailable: Altered Mental Status Past Patient History - Past Medical History & Family History Past Medical History?: Yes - Past Social History Smoking Status: Never Smoked Alcohol: None Drugs: Denies Home Situation {Lives}: With Family - CARDIAC Hx Atrial Fibrillation: Yes Hx Cardia Arrhythmia: Yes (A FIB) Hx Hypercholesterolemia: Yes Hx Hypertension: Yes Hx Pacemaker: Yes - PULMONARY Hx Respiratory Disorders: No - NEUROLOGICAL Hx Dementia: Yes - HEENT Hx HEENT Problems: No - RENAL Hx Chronic Kidney Disease: No - ENDOCRINE/METABOLIC Hx Hypothyroidism: Yes - HEMATOLOGICAL/ONCOLOGICAL Hx Anemia: Yes Hx Human Immunodeficiency Virus (HIV): No - INTEGUMENTARY Hx Dermatological Problems: No - MUSCULOSKELETAL/RHEUMATOLOGICAL Hx Arthritis: Yes Hx Osteoporosis: Yes - GASTROINTESTINAL Hx Gastritis: Yes Hx Pancreatitis: Yes - GENITOURINARY/GYNECOLOGICAL Hx Genitourinary Disorders: No - PSYCHIATRIC Hx Anxiety: Yes Hx Depression: Yes Other/Comment: baseline dementia - SURGICAL HISTORY Hx Cholecystectomy: Yes - ANESTHESIA Hx Anesthesia: Yes Hx Anesthesia Reactions: No Hx Malignant Hyperthermia: No Meds Allergies/Adverse Reactions: Allergies Allergy/AdvReac Type Severity Reaction Status Date / Time No Known Allergies Allergy Verified 07/30/18 03:49 Physical Exam - Constitutional Appears: Non-toxic, No Acute Distress, Confused, Chronically Ill Additional comments: frail elderly lady, calm at rest but agitated when asked questions - Eye Exam Eye Exam: Normal appearance - ENT Exam ENT Exam: Mucous Membranes Moist - Neck Exam Neck exam: Positive for: Full Rom - Respiratory Exam Respiratory Exam: Clear to Auscultation Bilateral - Cardiovascular Exam Cardiovascular Exam: Irregular Rhythm - GI/Abdominal Exam GI & Abdominal Exam: Soft. absent: Tenderness - Extremities Exam Extremities exam: Negative for: calf tenderness, pedal edema - Neurological Exam Neurological exam: Alert Additional comments: alert, can answer some questions but does not answer appropriately oriented to self, but not time or place - Skin Skin Exam: Dry, Warm Results - Vital Signs Recent Vital Signs: Last Vital Signs Temp 97.9 F 08/15/18 18:22 Pulse 99 H 08/15/18 18:22 Resp 20 08/15/18 18:22 BP 155/77 H 08/15/18 18:22 Pulse Ox 100 08/15/18 20:44 - Labs Result Diagrams: 08/15/18 21:40 08/15/18 21:40 Labs: Laboratory Results - last 24 hr 08/15/18 08/15/18 08/15/18 18:57 21:07 21:40 WBC RBC Hgb Hct MCV MCH MCHC RDW Plt Count MPV Neut % (Auto) Lymph % (Auto) [place] % (Auto) Eos % (Auto) Baso % (Auto) Neut # (Auto) Lymph # (Auto) [place] # (Auto) Eos # (Auto) Baso # (Auto) PT INR APTT pO2 29 L VBG pH 7.56 H VBG pCO2 24 L VBG HCO3 24.2 VBG Total CO2 22.2 VBG O2 Sat (Calc) 78.8 H VBG Base Excess -0.6 L VBG Potassium 4.9 Sodium 134.0 136 Chloride 107.0 98 Glucose 84 Lactate 2.6 H FiO2 21.0 Potassium 5.0 Carbon Dioxide 21 L Anion Gap 22 H BUN 35 H Creatinine 1.0 Est GFR ( Amer) > 60 Est GFR (Non-Af Amer) 53 POC Glucose (mg/dL) 93 Random Glucose 83 Calcium 10.3 H Total Bilirubin 0.2 AST 21 ALT 19 Alkaline Phosphatase 81 Troponin I < 0.0120 NT-Pro-B Natriuret Pep 2130 H Total Protein 8.0 Albumin 4.4 Globulin 3.6 Albumin/Globulin Ratio 1.2 Venous Blood Potassium 4.9 Blood Type Antibody Screen BBK History Checked 08/15/18 08/15/18 08/15/18 21:40 21:40 21:40 WBC 6.9 RBC 4.13 Hgb 12.4 Hct 37.0 MCV 89.6 MCH 30.1 MCHC 33.6 RDW 15.1 H Plt Count 270 MPV 9.0 Neut % (Auto) 66.5 Lymph % (Auto) 24.5 [place]ansom % (Auto) 7.4 Eos % (Auto) 1.0 Baso % (Auto) 0.6 Neut # (Auto) 4.6 Lymph # (Auto) 1.7 [place]ansom # (Auto) 0.5 Eos # (Auto) 0.1 Baso # (Auto) 0.0 PT 11.9 INR 1.0 APTT 30.9 pO2 VBG pH VBG pCO2 VBG HCO3 VBG Total CO2 VBG O2 Sat (Calc) VBG Base Excess VBG Potassium Sodium Chloride Glucose Lactate FiO2 Potassium Carbon Dioxide Anion Gap BUN Creatinine Est GFR ( Amer) Est GFR (Non-Af Amer) POC Glucose (mg/dL) Random Glucose Calcium Total Bilirubin AST ALT Alkaline Phosphatase Troponin I NT-Pro-B Natriuret Pep Total Protein Albumin Globulin Albumin/Globulin Ratio Venous Blood Potassium Blood Type B POSITIVE Antibody Screen Positive BBK History Checked Patient has bt Assessment & Plan - Assessment and Plan (Free Text) Assessment: 87 yo F with atrial fibrillation, hypertension, hypothyroidism, NIDDM type 2, dementia, hypothyroidism, admitted due to altered mental status and worsening delirium. Newly elevated proBNP. Plan: AMS/Delirium - Digoxin level - TSH - Continue IV hydration - Urinalysis and urine culture pending - Hold home med seroquel for now; consider restarting when organic causes of AMS ruled out - 1:1 - Fall risk protocol - Psychiatry consult Dehydration - IV hydration; s/p 1L in ED - Continue maintenance fluids - Repeat lactate - BMP in am Hypertension and Afib - Resume home medications lisinopril, metoprolol; hold digoxin until known level - Echo 10/2015: normal LV wall motion, EF 60-65% - Elevated proBNP; echo ordered - EKG Seizure disorder - Continue keppra 250 mg BID NIDDM - Hold home med metformin - Low dose insulin coverage scale Hypothyroidism - Check TSH - Resume home med levothyroxine Hyperlipidema - Resume home med atorvastatin 40 mg Diet - Pureed, consistent carb/heart healthy DVT prophylaxis - SCDs for now Discussed w/ Dr. Yeh.
[2018-08-16] MEDS: Sodium Chloride 0.9% 1,000 ML IV SCH ×2 (02:00→15:04)
[2018-08-16 03:30] LABS: URINE BILIRUBIN NEGATIVE (NEGATIVE); URINE BLOOD NEGATIVE (NEGATIVE); URINE CLARITY CLEAR (Clear); URINE COLOR STRAW (YELLOW); URINE GLUCOSE (UA) NEG (NEGATIVE); URINE LEUKOCYTE ESTERASE NEG Leu/uL (Negative); URINE PROTEIN NEGATIVE (NEGATIVE); URINE UROBILINOGEN 0.2-1.0 mg/dL (0.2-1.0)
[2018-08-16] MEDS ORDERED: Dextrose 50% SYRINGE Inj (50 ml) IV PRN (05:22)
[2018-08-16] MEDS ORDERED: Glucagon Recombinant 1 mg Inj IM PRN (05:22)
[2018-08-16] MEDS ORDERED: Digoxin 125 mcg (0.125 mg) Tab PO ONE (06:22)
[2018-08-16 06:38] LABS: BLOOD UREA NITROGEN 27 mg/dl (7-17); CALCIUM 9.7 mg/dL (8.4-10.2); GFR NON-AFRICAN AMERICAN > 60
[2018-08-16] MEDS ORDERED: Metoprolol Succinate 50 mg XL Tab PO STA (06:57)
[2018-08-16] MEDS: Levothyroxine 50 MCG TAB PO SCH (06:58)
--- NOTE | 2018-08-16 07:45 | CP.PCM.CON ---
History of Present Illness - History of Present Illness History of Present Illness: Psychiatry consult CC: AMS HPI: 87 yo F with atrial fibrillation, hypertension, hypothyroidism, NIDDM type 2, dementia, recent onset seizure disorder brought into ED by son and daughter for worsening AMS from baseline and delirium. Patient unable to provide any history; she is currently A + O x self, "[facility].". She has disorganized speech/thought process and is unable to provide any relevant information. History below from the chart. Patient is currently calm w/o any behavioral disturbances. She is a fall risk due to physical limitations. PMD: Dr. Lila Yeh PMHx: HTN, DM, HLD, A-fib (no anticoagulation 2/2 falls), AICD, hypothyroidism, arthritis PSHx: cholecystectomy, Pacemaker 2011 SHx: Denies smoking, ETOH and illicit drug use FHx: lives with son, family hx non-contributory, son Bulmaro Victor [phone] Allergies: None Meds: meds reviewed with son, who is intrusion analyst; Digoxin 0.125 mg every other day, levothyroxine 50 mcg daily, lisinopril 10 mg daily, metformin 500 mg BID, metoprolol succinate 50 mg daily, atorvastatin 40 mg daily, keppra 250 mg BID, Seroquel 37.[address] w/o contrast, comparison to 07/30/18; mild cortical atrophy, unchanged; mild microvascular ischemic disease, unchanged; no CT evidence for acute intracranial abnormalities. Impression: 87 yo female w/ worsening chronic Major Neurocognitive Disorder without acute behavioral disturbances. -Recommend Seroquel 25 mg PO Daily@1300/ 25 mg PO HS -If patient becomes acutely agitated, can give Haldol 0.5 mg PO/IM/IV Q8HR PRN Agitation -Patient does not have capacity to make medical decisions at this time -No acute inpatient psychiatric admission indicated at this time Past Patient History - Past Medical History & Family History Past Medical History?: Yes - Past Social History Smoking Status: Never Smoked Alcohol: None Drugs: Denies Home Situation {Lives}: With Family - CARDIAC Hx Atrial Fibrillation: Yes Hx Cardia Arrhythmia: Yes (A FIB) Hx Hypercholesterolemia: Yes Hx Hypertension: Yes Hx Pacemaker: Yes - PULMONARY Hx Respiratory Disorders: No - NEUROLOGICAL Hx Dementia: Yes - HEENT Hx HEENT Problems: No - RENAL Hx Chronic Kidney Disease: No - ENDOCRINE/METABOLIC Hx Hypothyroidism: Yes - HEMATOLOGICAL/ONCOLOGICAL Hx Anemia: Yes Hx Human Immunodeficiency Virus (HIV): No - INTEGUMENTARY Hx Dermatological Problems: No - MUSCULOSKELETAL/RHEUMATOLOGICAL Hx Arthritis: Yes Hx Osteoporosis: Yes - GASTROINTESTINAL Hx Gastritis: Yes Hx Pancreatitis: Yes - GENITOURINARY/GYNECOLOGICAL Hx Genitourinary Disorders: No - PSYCHIATRIC Hx Anxiety: Yes Hx Depression: Yes Other/Comment: baseline dementia - SURGICAL HISTORY Hx Cholecystectomy: Yes - ANESTHESIA Hx Anesthesia: Yes Hx Anesthesia Reactions: No Hx Malignant Hyperthermia: No Meds Allergies/Adverse Reactions: Allergies Allergy/AdvReac Type Severity Reaction Status Date / Time No Known Allergies Allergy Verified 07/30/18 03:49 - Medications Medications: Current Medications Dextrose (Dextrose 50% Inj) 0 ml IV STAT PRN; Protocol PRN Reason: Hypoglycemia Protocol Dextrose (Glutose 15) 0 gm PO ONCE PRN; Protocol PRN Reason: Hypoglycemia Protocol Digoxin (Digoxin) 0.125 mg PO Q48H [facility] Glucagon (Glucagen Diagnostic Kit) 0 mg IM STAT PRN; Protocol PRN Reason: Hypoglycemia Protocol Sodium Chloride (Sodium Chloride 0.9%) 1,000 mls @ 75 mls/hr IV .[id number] [facility] Last Admin: 08/16/18 02:00 Dose: 75 mls/hr Insulin Human Lispro (Humalog) 0 units SC ACHS [facility]; Protocol Levetiracetam (Keppra) 250 mg PO BID [facility] Levothyroxine Sodium (Synthroid) 50 mcg PO DAILY@0630 [facility] Last Admin: 08/16/18 06:58 Dose: 50 mcg Lisinopril (Zestril) 10 mg PO DAILY [facility] Metoprolol Succinate (Toprol Xl) 50 mg PO DAILY [facility] Pantoprazole Sodium (Protonix Ec Tab) 40 mg PO DAILY [facility] Results - Vital Signs Recent Vital Signs: Last Vital Signs Temp 98.0 F 08/16/18 06:25 Pulse 140 H 08/16/18 06:29 Resp 18 08/16/18 06:25 BP 129/63 08/16/18 06:29 Pulse Ox 99 08/16/18 06:25 - Labs Result Diagrams: 08/15/18 21:40 08/16/18 06:10 Labs: Laboratory Results - last 24 hr 08/15/18 08/15/18 08/15/18 18:57 21:07 21:40 WBC RBC Hgb Hct MCV MCH MCHC RDW Plt Count MPV Neut % (Auto) Lymph % (Auto) [place] % (Auto) Eos % (Auto) Baso % (Auto) Neut # (Auto) Lymph # (Auto) [place] # (Auto) Eos # (Auto) Baso # (Auto) PT INR APTT pO2 29 L VBG pH 7.56 H VBG pCO2 24 L VBG HCO3 24.2 VBG Total CO2 22.2 VBG O2 Sat (Calc) 78.8 H VBG Base Excess -0.6 L VBG Potassium 4.9 Sodium 134.0 136 Chloride 107.0 98 Glucose 84 Lactate 2.6 H FiO2 21.0 Potassium 5.0 Carbon Dioxide 21 L Anion Gap 22 H BUN 35 H Creatinine 1.0 Est GFR ( Amer) > 60 Est GFR (Non-Af Amer) 53 POC Glucose (mg/dL) 93 Random Glucose 83 Lactic Acid Calcium 10.3 H Total Bilirubin 0.2 AST 21 ALT 19 Alkaline Phosphatase 81 Troponin I < 0.0120 NT-Pro-B Natriuret Pep 2130 H Total Protein 8.0 Albumin 4.4 Globulin 3.6 Albumin/Globulin Ratio 1.2 TSH 3rd Generation Venous Blood Potassium 4.9 Urine Color Urine Clarity Urine pH Ur Specific [place] Urine Protein Urine Glucose (UA) Urine Ketones Urine Blood Urine Nitrate Urine Bilirubin Urine Urobilinogen Ur Leukocyte Esterase Urine RBC (Auto) Urine Microscopic WBC Digoxin Blood Type Antibody Screen Antibody Identification BBK History Checked 08/15/18 08/15/18 08/15/18 21:40 21:40 21:40 WBC 6.9 RBC 4.13 Hgb 12.4 Hct 37.0 MCV 89.6 MCH 30.1 MCHC 33.6 RDW 15.1 H Plt Count 270 MPV 9.0 Neut % (Auto) 66.5 Lymph % (Auto) 24.5 [place] % (Auto) 7.4 Eos % (Auto) 1.0 Baso % (Auto) 0.6 Neut # (Auto) 4.6 Lymph # (Auto) 1.7 [place] # (Auto) 0.5 Eos # (Auto) 0.1 Baso # (Auto) 0.0 PT 11.9 INR 1.0 APTT 30.9 pO2 VBG pH VBG pCO2 VBG HCO3 VBG Total CO2 VBG O2 Sat (Calc) VBG Base Excess VBG Potassium Sodium Chloride Glucose Lactate FiO2 Potassium Carbon Dioxide Anion Gap BUN Creatinine Est GFR ( Amer) Est GFR (Non-Af Amer) POC Glucose (mg/dL) Random Glucose Lactic Acid Calcium Total Bilirubin AST ALT Alkaline Phosphatase Troponin I NT-Pro-B Natriuret Pep Total Protein Albumin Globulin Albumin/Globulin Ratio TSH 3rd Generation Venous Blood Potassium Urine Color Urine Clarity Urine pH Ur Specific [place] Urine Protein Urine Glucose (UA) Urine Ketones Urine Blood Urine Nitrate Urine Bilirubin Urine Urobilinogen Ur Leukocyte Esterase Urine RBC (Auto) Urine Microscopic WBC Digoxin Blood Type B POSITIVE Antibody Screen Positive Antibody Identification Anti Fya BBK History Checked Patient has bt 08/16/18 08/16/18 08/16/18 03:19 03:19 03:19 WBC RBC Hgb Hct MCV MCH MCHC RDW Plt Count MPV Neut % (Auto) Lymph % (Auto) [place] % (Auto) Eos % (Auto) Baso % (Auto) Neut # (Auto) Lymph # (Auto) [place] # (Auto) Eos # (Auto) Baso # (Auto) PT INR APTT pO2 VBG pH VBG pCO2 VBG HCO3 VBG Total CO2 VBG O2 Sat (Calc) VBG Base Excess VBG Potassium Sodium Chloride Glucose Lactate FiO2 Potassium Carbon Dioxide Anion Gap BUN Creatinine Est GFR ( Amer) Est GFR (Non-Af Amer) POC Glucose (mg/dL) Random Glucose Lactic Acid 1.1 Calcium Total Bilirubin AST ALT Alkaline Phosphatase Troponin I NT-Pro-B Natriuret Pep Total Protein Albumin Globulin Albumin/Globulin Ratio TSH 3rd Generation Venous Blood Potassium Urine Color Straw Urine Clarity Clear Urine pH 7.0 Ur Specific [place] 1.008 Urine Protein Negative Urine Glucose (UA) Neg Urine Ketones Negative Urine Blood Negative Urine Nitrate Negative Urine Bilirubin Negative Urine Urobilinogen 0.2-1.0 Ur Leukocyte Esterase Neg Urine RBC (Auto) 2 Urine Microscopic WBC 1 Digoxin 0.7 L Blood Type Antibody Screen Antibody Identification BBK History Checked 08/16/18 08/16/18 05:39 06:10 WBC RBC Hgb Hct MCV MCH MCHC RDW Plt Count MPV Neut % (Auto) Lymph % (Auto) [place] % (Auto) Eos % (Auto) Baso % (Auto) Neut # (Auto) Lymph # (Auto) [place] # (Auto) Eos # (Auto) Baso # (Auto) PT INR APTT pO2 VBG pH VBG pCO2 VBG HCO3 VBG Total CO2 VBG O2 Sat (Calc) VBG Base Excess VBG Potassium Sodium 139 Chloride 103 Glucose Lactate FiO2 Potassium 4.7 Carbon Dioxide 21 L Anion Gap 20 BUN 27 H Creatinine 0.8 Est GFR ( Amer) > 60 Est GFR (Non-Af Amer) > 60 POC Glucose (mg/dL) 129 H Random Glucose 139 H Lactic Acid Calcium 9.7 Total Bilirubin AST ALT Alkaline Phosphatase Troponin I NT-Pro-B Natriuret Pep Total Protein Albumin Globulin Albumin/Globulin Ratio TSH 3rd Generation 1.97 Venous Blood Potassium Urine Color Urine Clarity Urine pH Ur Specific [place] Urine Protein Urine Glucose (UA) Urine Ketones Urine Blood Urine Nitrate Urine Bilirubin Urine Urobilinogen Ur Leukocyte Esterase Urine RBC (Auto) Urine Microscopic WBC Digoxin Blood Type Antibody Screen Antibody Identification BBK History Checked
--- NOTE | 2018-08-16 08:50 | CARD ---
APPROVED REPORT Date of service: 08/16/2018 EKG Measurement Heart [id number] <Conclusion> Atrial fibrillation with rapid ventricular response Septal infarct, age undetermined Non specific T-wave changes Abnormal ECG
[2018-08-16] MEDS: Insulin Lispro (humaLOG) 100 Units/ml Inj SC SCH ×4 (08:57→22:52)
[2018-08-16] MEDS: Pantoprazole 40 mg EC Tab PO SCH (08:58)
[2018-08-16] MEDS ORDERED: Metoprolol Succinate 50 mg XL Tab PO SCH (09:00)
[2018-08-16] MEDS ORDERED: Digoxin 125 mcg (0.125 mg) Tab PO SCH (09:00)
--- NOTE | 2018-08-16 09:03 | CARD ---
APPROVED REPORT Date of service: 08/15/2018 EKG Measurement Heart [id number] <Conclusion> Atrial fibrillation with rapid ventricular response Septal infarct, age undetermined Abnormal ECG
--- NOTE | 2018-08-16 09:59 | RAD ---
Date of service: 08/15/2018 HISTORY: possible admission COMPARISON: Chest radiographs 07/30/2018. FINDINGS: LUNGS: No active pulmonary disease. PLEURA: No significant pleural effusion identified, no pneumothorax apparent. CARDIOVASCULAR: Calcific atherosclerotic changes are seen related to the thoracic aorta. Bipolar permanent cardiac pacemaker reiterated. Normal cardiac size. No pulmonary vascular congestion. OSSEOUS STRUCTURES: No significant abnormalities. VISUALIZED UPPER ABDOMEN: Normal. OTHER FINDINGS: None. IMPRESSION: No interval acute cardiopulmonary disease appreciated. Permanent pacemaker reiterated.
--- NOTE | 2018-08-16 14:56 | CT ---
Date of service: 08/15/2018 PROCEDURE: CT HEAD WITHOUT CONTRAST. HISTORY: AMS with delerium COMPARISON: Unenhanced head CT 07/30/2018. TECHNIQUE: Axial computed tomography images were obtained through the head/brain without intravenous contrast. Radiation dose: Total exam DLP = 893.4 mGy-cm. This CT exam was performed using one or more of the following dose reduction techniques: Automated exposure control, adjustment of the mA and/or kV according to patient size, and/or use of iterative reconstruction technique. FINDINGS: HEMORRHAGE: No intracranial hemorrhage. BRAIN: Good corticomedullary differentiation is seen. Reiterated diffuse cerebral atrophy and chronic microangiopathy. No suspicious extra-axial fluid collection is identified and the midline brain anatomy appears grossly nonfocal as imaged. No mass effect identified. VENTRICLES: Unremarkable. No hydrocephalus. CALVARIUM: Unremarkable. PARANASAL SINUSES: Unremarkable as visualized. No significant inflammatory changes. MASTOID AIR CELLS: Unremarkable as visualized. No inflammatory changes. OTHER FINDINGS: None. IMPRESSION: Stable age related neuro degenerative changes are reiterated no definite acute intracranial findings appreciable. Follow-up CT or MRI are available as clinically warranted. Concordant preliminary report from Steve, 08/16/1911 08 a.m..
--- NOTE | 2018-08-16 15:42 | CP.PCM.CON ---
History of Present Illness - History of Present Illness History of Present Illness: ASKED TO SEE PT BY DR WAGNER FOR RAPID AFIB. 87 yo F admitted with ms changes and found to have rapid afib. pt with dementia, recent onset seizure disorder brought into ED by son and daughter for worsening AMS from baseline and delirium. Patient unable to provide any history; she is currently A + O x self. She has disorganized speech/thought process and is unable to provide any relevant information. History below from the chart and primary care team. Patient is currently calm w/o any behavioral disturbances. She is a fall risk due to physical limitations. pt on toprol xl 50mg daily at home. Review of Systems - Review of Systems Systems not reviewed;Unavailable: Altered Mental Status Past Patient History - Tetanus Immunizations Tetanus Immunization: Unknown - Past Medical History & Family History Past Medical History?: Yes - Past Social History Smoking Status: Never Smoked Chewing Tobacco Use: No Cigar Use: No Alcohol: None Home Situation {Lives}: With Family Domestic Violence: Negative - CARDIAC Hx Cardiac Disorders: Yes Hx Atrial Fibrillation: Yes Hx Cardia Arrhythmia: Yes (A FIB) Hx Hypercholesterolemia: Yes Hx Hypertension: Yes Hx Pacemaker: Yes - PULMONARY Hx Respiratory Disorders: No - NEUROLOGICAL Hx Neurological Disorder: Yes Hx Dementia: Yes - HEENT Hx HEENT Problems: No - RENAL Hx Chronic Kidney Disease: No - ENDOCRINE/METABOLIC Hx Endocrine Disorders: Yes Hx Hypothyroidism: Yes - HEMATOLOGICAL/ONCOLOGICAL Hx Blood Disorders: Yes Hx AIDS: No Hx Anemia: Yes Hx Human Immunodeficiency Virus (HIV): No - INTEGUMENTARY Hx Dermatological Problems: No - MUSCULOSKELETAL/RHEUMATOLOGICAL Hx Musculoskeletal Disorders: Yes Hx Arthritis: Yes Hx Falls: Yes Hx Osteoporosis: Yes - GASTROINTESTINAL Hx Gastrointestinal Disorders: Yes Hx Gastritis: Yes Hx Pancreatitis: Yes - GENITOURINARY/GYNECOLOGICAL Hx Genitourinary Disorders: No - PSYCHIATRIC Hx Psychophysiologic Disorder: Yes Hx Anxiety: Yes Hx Depression: Yes Hx Substance Use: No Other/Comment: baseline dementia - SURGICAL HISTORY Hx Surgeries: Yes Hx Cholecystectomy: Yes - ANESTHESIA Hx Anesthesia: Yes Hx Anesthesia Reactions: No Hx Malignant Hyperthermia: No Has any member of the family had a problem w/ anesthesia?: No Meds Allergies/Adverse Reactions: Allergies Allergy/AdvReac Type Severity Reaction Status Date / Time No Known Allergies Allergy Verified 07/30/18 03:49 - Medications Medications: Current Medications Dextrose (Dextrose 50% Inj) 0 ml IV STAT PRN; Protocol PRN Reason: Hypoglycemia Protocol Dextrose (Glutose 15) 0 gm PO ONCE PRN; Protocol PRN Reason: Hypoglycemia Protocol Digoxin (Digoxin) 0.125 mg PO Q48H [facility] Glucagon (Glucagen Diagnostic Kit) 0 mg IM STAT PRN; Protocol PRN Reason: Hypoglycemia Protocol Haloperidol Lactate (Haldol) 0.5 mg IM Q8 PRN PRN Reason: Agitation Sodium Chloride (Sodium Chloride 0.9%) 1,000 mls @ 75 mls/hr IV .[id number] [facility] Last Admin: 08/16/18 15:04 Dose: 75 mls/hr Insulin Human Lispro (Humalog) 0 units SC ACHS [facility]; Protocol Last Admin: 08/16/18 12:02 Dose: Not Given Levetiracetam (Keppra) 250 mg PO BID [facility] Last Admin: 08/16/18 08:58 Dose: 250 mg Levothyroxine Sodium (Synthroid) 50 mcg PO DAILY@0630 [facility] Last Admin: 08/16/18 06:58 Dose: 50 mcg Lisinopril (Zestril) 10 mg PO DAILY [facility] Last Admin: 08/16/18 08:58 Dose: 10 mg Metoprolol Succinate (Toprol Xl) 50 mg PO DAILY [facility] Pantoprazole Sodium (Protonix Ec Tab) 40 mg PO DAILY [facility] Last Admin: 08/16/18 08:58 Dose: 40 mg Quetiapine Fumarate (Seroquel) 25 mg PO DAILY@1300 [facility] Last Admin: 08/16/18 15:04 Dose: 25 mg Quetiapine Fumarate (Seroquel) 25 mg PO [facility] Physical Exam - Constitutional Appears: Confused - Head Exam Head Exam: ATRAUMATIC, NORMAL INSPECTION, NORMOCEPHALIC - Eye Exam Eye Exam: EOMI, Normal appearance, PERRL. absent: Conjunctival injection, Nystagmus, Periorbital swelling, Periorbital tenderness, Scleral icterus Pupil Exam: NORMAL ACCOMODATION, PERRL. absent: Fixed, Irregular, Miosis, Mydriatic, Unequal - ENT Exam ENT Exam: Mucous Membranes Moist, Normal Exam. absent: Mucous Membranes Dry, Normal External Ear Exam, Normal Oropharynx, TM's Normal Bilaterally - Neck Exam Neck exam: Positive for: Normal Inspection. Negative for: Full Rom, Lymphadenopathy, Meningismus, Tenderness, Thyromegaly - Respiratory Exam Respiratory Exam: Clear to Auscultation Bilateral, NORMAL BREATHING PATTERN. absent: Accessory Muscle Use, Chest Wall Tenderness, Decreased Breath Sounds, Prolonged Expiratory Phase, Rales, Rhonchi, Wheezes, Respiratory Distress, Stridor - Cardiovascular Exam Cardiovascular Exam: Tachycardia, Irregular Rhythm, +S1, +S2, Systolic Murmur. absent: Bradycardia, Clicks, Diastolic murmur, Gallop, REGULAR RHYTHM, JVD, RRR, Rubs, +S4 - GI/Abdominal Exam GI & Abdominal Exam: Normal Bowel Sounds, Soft. absent: Bruit, Diminished Bowel Sounds, Distended, Firm, Guarding, Hernia, Hyperactive Bowel Sounds, Hypoactive Bowel Sounds, Mass, Organomegaly, Pulsatile Mass, Rebound, Rigid, Tenderness - Rectal Exam Rectal Exam: Deferred - Extremities Exam Extremities exam: Positive for: normal inspection. Negative for: calf tenderness, full ROM, joint swelling, normal capillary refill, pedal edema, tenderness, pedal pulses present - Back Exam Back exam: NORMAL INSPECTION. absent: CVA tenderness (L), CVA tenderness (R), FULL ROM, muscle spasm, paraspinal tenderness, rash noted, tenderness, vertebral tenderness - Neurological Exam Neurological exam: Altered, Reflexes Normal - Psychiatric Exam Psychiatric exam: Normal Affect, Normal Mood - Skin Skin Exam: Dry, Intact, Normal Color, Warm Results - Vital Signs Recent Vital Signs: Last Vital Signs Temp 98.5 F 08/16/18 12:00 Pulse 80 08/16/18 14:36 Resp 20 08/16/18 12:00 BP 112/58 L 08/16/18 12:00 Pulse Ox 98 08/16/18 14:36 - Labs Result Diagrams: 08/15/18 21:40 08/16/18 06:10 Labs: Laboratory Results - last 24 hr 08/15/18 08/15/18 08/15/18 18:57 21:07 21:40 WBC RBC Hgb Hct MCV MCH MCHC RDW Plt Count MPV Neut % (Auto) Lymph % (Auto) Barren % (Auto) Eos % (Auto) Baso % (Auto) Neut # (Auto) Lymph # (Auto) Barren # (Auto) Eos # (Auto) Baso # (Auto) PT INR APTT pO2 29 L VBG pH 7.56 H VBG pCO2 24 L VBG HCO3 24.2 VBG Total CO2 22.2 VBG O2 Sat (Calc) 78.8 H VBG Base Excess -0.6 L VBG Potassium 4.9 Sodium 134.0 136 Chloride 107.0 98 Glucose 84 Lactate 2.6 H FiO2 21.0 Potassium 5.0 Carbon Dioxide 21 L Anion Gap 22 H BUN 35 H Creatinine 1.0 Est GFR ( Amer) > 60 Est GFR (Non-Af Amer) 53 POC Glucose (mg/dL) 93 Random Glucose 83 Lactic Acid Calcium 10.3 H Total Bilirubin 0.2 AST 21 ALT 19 Alkaline Phosphatase 81 Troponin I < 0.0120 NT-Pro-B Natriuret Pep 2130 H Total Protein 8.0 Albumin 4.4 Globulin 3.6 Albumin/Globulin Ratio 1.2 TSH 3rd Generation Venous Blood Potassium 4.9 Urine Color Urine Clarity Urine pH Ur Specific [place] Urine Protein Urine Glucose (UA) Urine Ketones Urine Blood Urine Nitrate Urine Bilirubin Urine Urobilinogen Ur Leukocyte Esterase Urine RBC (Auto) Urine Microscopic WBC Digoxin Blood Type Antibody Screen Antibody Identification BBK History Checked 08/15/18 08/15/18 08/15/18 21:40 21:40 21:40 WBC 6.9 RBC 4.13 Hgb 12.4 Hct 37.0 MCV 89.6 MCH 30.1 MCHC 33.6 RDW 15.1 H Plt Count 270 MPV 9.0 Neut % (Auto) 66.5 Lymph % (Auto) 24.5 Barren % (Auto) 7.4 Eos % (Auto) 1.0 Baso % (Auto) 0.6 Neut # (Auto) 4.6 Lymph # (Auto) 1.7 Barren # (Auto) 0.5 Eos # (Auto) 0.1 Baso # (Auto) 0.0 PT 11.9 INR 1.0 APTT 30.9 pO2 VBG pH VBG pCO2 VBG HCO3 VBG Total CO2 VBG O2 Sat (Calc) VBG Base Excess VBG Potassium Sodium Chloride Glucose Lactate FiO2 Potassium Carbon Dioxide Anion Gap BUN Creatinine Est GFR ( Amer) Est GFR (Non-Af Amer) POC Glucose (mg/dL) Random Glucose Lactic Acid Calcium Total Bilirubin AST ALT Alkaline Phosphatase Troponin I NT-Pro-B Natriuret Pep Total Protein Albumin Globulin Albumin/Globulin Ratio TSH 3rd Generation Venous Blood Potassium Urine Color Urine Clarity Urine pH Ur Specific [place] Urine Protein Urine Glucose (UA) Urine Ketones Urine Blood Urine Nitrate Urine Bilirubin Urine Urobilinogen Ur Leukocyte Esterase Urine RBC (Auto) Urine Microscopic WBC Digoxin Blood Type B POSITIVE Antibody Screen Positive Antibody Identification Anti Fya BBK History Checked Patient has bt 08/16/18 08/16/18 08/16/18 03:19 03:19 03:19 WBC RBC Hgb Hct MCV MCH MCHC RDW Plt Count MPV Neut % (Auto) Lymph % (Auto) Barren % (Auto) Eos % (Auto) Baso % (Auto) Neut # (Auto) Lymph # (Auto) Barren # (Auto) Eos # (Auto) Baso # (Auto) PT INR APTT pO2 VBG pH VBG pCO2 VBG HCO3 VBG Total CO2 VBG O2 Sat (Calc) VBG Base Excess VBG Potassium Sodium Chloride Glucose Lactate FiO2 Potassium Carbon Dioxide Anion Gap BUN Creatinine Est GFR ( Amer) Est GFR (Non-Af Amer) POC Glucose (mg/dL) Random Glucose Lactic Acid 1.1 Calcium Total Bilirubin AST ALT Alkaline Phosphatase Troponin I NT-Pro-B Natriuret Pep Total Protein Albumin Globulin Albumin/Globulin Ratio TSH 3rd Generation Venous Blood Potassium Urine Color Straw Urine Clarity Clear Urine pH 7.0 Ur Specific [place] 1.008 Urine Protein Negative Urine Glucose (UA) Neg Urine Ketones Negative Urine Blood Negative Urine Nitrate Negative Urine Bilirubin Negative Urine Urobilinogen 0.2-1.0 Ur Leukocyte Esterase Neg Urine RBC (Auto) 2 Urine Microscopic WBC 1 Digoxin 0.7 L Blood Type Antibody Screen Antibody Identification BBK History Checked 08/16/18 08/16/18 05:39 06:10 WBC RBC Hgb Hct MCV MCH MCHC RDW Plt Count MPV Neut % (Auto) Lymph % (Auto) Barren % (Auto) Eos % (Auto) Baso % (Auto) Neut # (Auto) Lymph # (Auto) Barren # (Auto) Eos # (Auto) Baso # (Auto) PT INR APTT pO2 VBG pH VBG pCO2 VBG HCO3 VBG Total CO2 VBG O2 Sat (Calc) VBG Base Excess VBG Potassium Sodium 139 Chloride 103 Glucose Lactate FiO2 Potassium 4.7 Carbon Dioxide 21 L Anion Gap 20 BUN 27 H Creatinine 0.8 Est GFR ( Amer) > 60 Est GFR (Non-Af Amer) > 60 POC Glucose (mg/dL) 129 H Random Glucose 139 H Lactic Acid Calcium 9.7 Total Bilirubin AST ALT Alkaline Phosphatase Troponin I NT-Pro-B Natriuret Pep Total Protein Albumin Globulin Albumin/Globulin Ratio TSH 3rd Generation 1.97 Venous Blood Potassium Urine Color Urine Clarity Urine pH Ur Specific [place] Urine Protein Urine Glucose (UA) Urine Ketones Urine Blood Urine Nitrate Urine Bilirubin Urine Urobilinogen Ur Leukocyte Esterase Urine RBC (Auto) Urine Microscopic WBC Digoxin Blood Type Antibody Screen Antibody Identification BBK History Checked - EKG Data EKG Interpreted by: Myself Rate: Tachycardia Assessment & Plan (1) Altered mental status Status: Acute (2) Atrial fibrillation Status: Chronic Onset Date: 04/16/14 (3) DM2 (diabetes mellitus, type 2) Status: Chronic (4) HTN (hypertension) Status: Chronic - Assessment and Plan (Free Text) Plan: DW RESIDENTS AT LENGTH. PLAN IS TO CHANGE TOPROL XL TO 25 BID AND TITRATE NECESSARY. STOP IVF. RESART LASIX 20 DAILY. AWAIT ECHO RESULTS. CONTINUE TELE. 45 MIN TOTAL CARE TIME.
[2018-08-16] MEDS ORDERED: Metoprolol Succinate 25 mg XL Tab PO SCH (21:00)
[2018-08-17 06:41] LABS: BASO % 0.5 % (0.0-2.0); EOS # 0.1 K/uL (0.0-0.7); EOS % 1.4 % (0.0-4.0); HEMOGLOBIN 11.7 g/dL (12.0-16.0); LYMPH # 1.5 K/uL (1.0-4.3); LYMPH % 28.4 % (20.0-40.0); MEAN CELL VOLUME 91.6 fl (81.0-99.0); MEAN CORPUSCULAR HEMOGLOBIN 30.5 pg (27.0-31.0); MEAN CORPUSCULAR HGB CONC 33.3 g/dL (33.0-37.0); MEAN PLATELET VOLUME 9.2 fl (7.2-11.7); MONO # 0.5 K/uL (0.0-0.8); MONO % 9.3 % (0.0-10.0); NEUT # 3.1 K/uL (1.8-7.0); NEUT % 60.4 % (50.0-75.0); NRBC % 0.1 % (0.0-0.0); RBC 3.85 Mil/uL (3.80-5.20); RED CELL DISTRIBUTION WIDTH 15.1 % (11.5-14.5); WHITE BLOOD COUNT 5.2 K/uL (4.8-10.8)
[2018-08-17 07:07] LABS: ALB/GLOB RATIO 1.1 (1.0-2.1); ALBUMIN 3.6 g/dL (3.5-5.0); ALT/SGPT 17 U/L (9-52); AST/SGOT 18 U/L (14-36); BLOOD UREA NITROGEN 18 mg/dl (7-17); CALCIUM 9.4 mg/dL (8.4-10.2); GFR NON-AFRICAN AMERICAN > 60
[2018-08-17] MEDS ORDERED: Metoprolol Succinate 50 mg XL Tab PO SCH (09:00)
[2018-08-17] MEDS: Digoxin 125 mcg (0.125 mg) Tab PO SCH (09:13)
[2018-08-17] MEDS: Pantoprazole 40 mg EC Tab PO SCH (09:13)
[2018-08-17] MEDS: Metoprolol Succinate 50 mg XL Tab PO SCH ×3 (09:15→21:26)
[2018-08-17] MEDS: Insulin Lispro (humaLOG) 100 Units/ml Inj SC SCH ×4 (09:16→21:22)
[2018-08-17] MEDS: Enoxaparin 40 mg Syringe SC SCH (09:16)
--- NOTE | 2018-08-17 12:04 | CP.PCM.PN ---
<[place]Sultan - Last Filed: 08/17/18 12:01> Subjective - Date & Time of Evaluation Date of Evaluation: 08/17/18 Time of Evaluation: 11:50 - Subjective Subjective: Patient seen and examined this morning. Patient's son present in the room. Patient is awake and alert but oriented to person only. Recognizes her son. Patient thinks she is in a garage. No acute overnight event Patient's BP elevated this morning but heart rate has been stable. Denies any chest pain, dyspnea, fever or chills. Objective - Vital Signs/Intake and Output Vital Signs (last 24 hours): Temp Pulse Resp BP Pulse Ox 97 F L 74 18 173/66 H 100 08/17/18 08:06 08/17/18 09:15 08/17/18 08:06 08/17/18 09:15 08/17/18 08:06 - Medications Medications: Current Medications Dextrose (Dextrose 50% Inj) 0 ml IV STAT PRN; Protocol PRN Reason: Hypoglycemia Protocol Dextrose (Glutose 15) 0 gm PO ONCE PRN; Protocol PRN Reason: Hypoglycemia Protocol Digoxin (Digoxin) 0.125 mg PO Q48H [facility] Last Admin: 08/17/18 09:13 Dose: 0.125 mg Enoxaparin Sodium (Lovenox) 40 mg SC DAILY [facility]; Protocol Last Admin: 08/17/18 09:16 Dose: 40 mg Furosemide (Lasix) 20 mg PO DAILY [facility] Last Admin: 08/17/18 09:13 Dose: 20 mg Glucagon (Glucagen Diagnostic Kit) 0 mg IM STAT PRN; Protocol PRN Reason: Hypoglycemia Protocol Haloperidol Lactate (Haldol) 0.5 mg IM Q8 PRN PRN Reason: Agitation Insulin Human Lispro (Humalog) 0 units SC ACHS [facility]; Protocol Last Admin: 08/17/18 09:16 Dose: Not Given Levetiracetam (Keppra) 250 mg PO BID [facility] Last Admin: 08/17/18 09:14 Dose: 250 mg Levothyroxine Sodium (Synthroid) 50 mcg PO DAILY@0630 [facility] Last Admin: 08/16/18 06:58 Dose: 50 mcg Lisinopril (Zestril) 10 mg PO DAILY [facility] Last Admin: 08/17/18 09:14 Dose: 10 mg Metoprolol Succinate (Toprol Xl) 50 mg PO Q12 [facility] Last Admin: 08/17/18 09:16 Dose: Not Given Pantoprazole Sodium (Protonix Ec Tab) 40 mg PO DAILY [facility] Last Admin: 08/17/18 09:13 Dose: 40 mg Quetiapine Fumarate (Seroquel) 25 mg PO DAILY@1300 [facility] Last Admin: 08/16/18 15:04 Dose: 25 mg Quetiapine Fumarate (Seroquel) 25 mg PO [facility] Last Admin: 08/16/18 22:56 Dose: 25 mg - Labs Labs: 08/17/18 04:30 08/17/18 04:30 PT 11.9 Seconds (9.8-13.1) 08/15/18 21:40 INR 1.0 08/15/18 21:40 APTT 30.9 Seconds (25.6-37.1) 08/15/18 21:40 - Constitutional Appears: No Acute Distress, Confused, Chronically Ill, Other (cooperative with exam) - Head Exam Head Exam: NORMAL INSPECTION - Eye Exam Eye Exam: Normal appearance - ENT Exam ENT Exam: Mucous Membranes Moist - Respiratory Exam Respiratory Exam: Clear to Ausculation Bilateral, NORMAL BREATHING PATTERN. absent: Rhonchi, Wheezes - Cardiovascular Exam Cardiovascular Exam: Irregular Rhythm, +S1, +S2 - GI/Abdominal Exam GI & Abdominal Exam: Soft, Normal Bowel Sounds. absent: Tenderness - Extremities Exam Extremities Exam: Normal Inspection. absent: Calf Tenderness - Neurological Exam Neurological Exam: Alert, Awake Additional comments: Oriented to person only, not oriented to place or time. She thinks she is in a garage and it's 1982. - Psychiatric Exam Psychiatric exam: Normal Affect - Skin Skin Exam: Dry, Normal Color Assessment and Plan - Assessment and Plan (Free Text) Assessment: 87 yo F with atrial fibrillation, hypertension, hypothyroidism, NIDDM type 2, dementia, hypothyroidism, admitted due to altered mental status and worsening delirium. Has elevated proBNP. 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 Follow-up CT or MRI are available as clinically warranted. -TSH 1.97 -Psych consult-- Dr. Neff, recs appreciated. -c/w seroquel 25 mg daily at 1300 -c/w seroqul 25 mg po hs -c/w Haldol 0.5 mg PO q8hrs prn -Urine cx: no growth -c/w Avasys monitor for fall risk Chronic atrial fibrillation -Had tachycardia yesterday, improved now -s/p pacemaker -Cardiology consult -- Dr. Hamilton, recs appreciated -changed metoprolol succinated to 50 mg q12 for elevated BP, rate controlled this morning. -f/u echo and AM labs Hypertension: -not controlled - Echo 10/2015: normal LV wall motion, EF 60-65% - Increase metoprolol succinated to 50 mg q12 - c/w lisinopril 10 mg po daily - c/w lasix 20 mg po daily Elevated proBNP of 2130 -c/w Lasix 20 mg po daily -Echo 10/2015: normal LV wall motion, EF 60-65% -f/u echo result History of multiple falls -Fall risk protocol -PT/OT evaluation Seizure disorder - Continue keppra 250 mg BID NIDDM - Hold home med metformin - Low dose insulin coverage scale Hypothyroidism - TSH 1.97 - Resume home med levothyroxine Hyperlipidema - Resume home med atorvastatin 40 mg Diet - Pureed, consistent carb/heart healthy DVT prophylaxis - Lovenox 40 mg sc daily Code status: -DNR/DNI Plan discussed with Dr. Davon Boykin, [id number] <Dahlia Mays - Last Filed: 08/17/18 17:30> Objective - Vital Signs/Intake and Output Vital Signs (last 24 hours): Temp Pulse Resp BP Pulse Ox 97.7 F 73 18 112/65 99 08/17/18 15:54 08/17/18 15:54 08/17/18 15:54 08/17/18 15:54 08/17/18 15:54 - Medications Medications: Current Medications Dextrose (Dextrose 50% Inj) 0 ml IV STAT PRN; Protocol PRN Reason: Hypoglycemia Protocol Dextrose (Glutose 15) 0 gm PO ONCE PRN; Protocol PRN Reason: Hypoglycemia Protocol Digoxin (Digoxin) 0.125 mg PO Q48H [facility] Last Admin: 08/17/18 09:13 Dose: 0.125 mg Enoxaparin Sodium (Lovenox) 40 mg SC DAILY [facility]; Protocol Last Admin: 08/17/18 09:16 Dose: 40 mg Furosemide (Lasix) 20 mg PO DAILY [facility] Last Admin: 08/17/18 09:13 Dose: 20 mg Glucagon (Glucagen Diagnostic Kit) 0 mg IM STAT PRN; Protocol PRN Reason: Hypoglycemia Protocol Haloperidol Lactate (Haldol) 0.5 mg IM Q8 PRN PRN Reason: Agitation Insulin Human Lispro (Humalog) 0 units SC ACHS [facility]; Protocol Last Admin: 08/17/18 16:38 Dose: Not Given Levetiracetam (Keppra) 250 mg PO BID [facility] Last Admin: 08/17/18 16:38 Dose: 250 mg Levothyroxine Sodium (Synthroid) 50 mcg PO DAILY@0630 [facility] Last Admin: 08/16/18 06:58 Dose: 50 mcg Lisinopril (Zestril) 10 mg PO DAILY [facility] Last Admin: 08/17/18 09:14 Dose: 10 mg Metoprolol Succinate (Toprol Xl) 50 mg PO Q12 [facility] Last Admin: 08/17/18 09:16 Dose: Not Given Pantoprazole Sodium (Protonix Ec Tab) 40 mg PO DAILY [facility] Last Admin: 08/17/18 09:13 Dose: 40 mg Quetiapine Fumarate (Seroquel) 25 mg PO DAILY@1300 [facility] Last Admin: 08/17/18 13:04 Dose: 25 mg Quetiapine Fumarate (Seroquel) 25 mg PO HS [facility] Last Admin: 08/16/18 22:56 Dose: 25 mg - Labs Labs: 08/17/18 04:30 08/17/18 04:30 PT 11.9 Seconds (9.8-13.1) 08/15/18 21:40 INR 1.0 08/15/18 21:40 APTT 30.9 Seconds (25.6-37.1) 08/15/18 21:40 Attending/Attestation - Attestation I have personally seen and examined this patient.: Yes I have fully participated in the care of the patient.: Yes I have reviewed all pertinent clinical information, including history, physical exam and plan: Yes
--- NOTE | 2018-08-17 22:49 | CP.PCM.PN ---
Subjective - Date & Time of Evaluation Date of Evaluation: 08/17/18 Time of Evaluation: 22:49 - Subjective Subjective: PT CONFUSED Objective - Vital Signs/Intake and Output Vital Signs (last 24 hours): Temp Pulse Resp BP Pulse Ox 97.5 F L 69 18 147/64 96 08/17/18 19:08 08/17/18 21:26 08/17/18 19:08 08/17/18 21:26 08/17/18 19:08 - Medications Medications: Current Medications Dextrose (Dextrose 50% Inj) 0 ml IV STAT PRN; Protocol PRN Reason: Hypoglycemia Protocol Dextrose (Glutose 15) 0 gm PO ONCE PRN; Protocol PRN Reason: Hypoglycemia Protocol Digoxin (Digoxin) 0.125 mg PO Q48H [facility] Last Admin: 08/17/18 09:13 Dose: 0.125 mg Enoxaparin Sodium (Lovenox) 40 mg SC DAILY [facility]; Protocol Last Admin: 08/17/18 09:16 Dose: 40 mg Furosemide (Lasix) 20 mg PO DAILY [facility] Last Admin: 08/17/18 09:13 Dose: 20 mg Glucagon (Glucagen Diagnostic Kit) 0 mg IM STAT PRN; Protocol PRN Reason: Hypoglycemia Protocol Haloperidol Lactate (Haldol) 0.5 mg IM Q8 PRN PRN Reason: Agitation Insulin Human Lispro (Humalog) 0 units SC [facility]; Protocol Last Admin: 08/17/18 21:22 Dose: Not Given Levetiracetam (Keppra) 250 mg PO BID [facility] Last Admin: 08/17/18 16:38 Dose: 250 mg Levothyroxine Sodium (Synthroid) 50 mcg PO DAILY@0630 [facility] Last Admin: 08/16/18 06:58 Dose: 50 mcg Lisinopril (Zestril) 10 mg PO DAILY [facility] Last Admin: 08/17/18 09:14 Dose: 10 mg Metoprolol Succinate (Toprol Xl) 50 mg PO Q12 [facility] Last Admin: 08/17/18 21:26 Dose: 50 mg Pantoprazole Sodium (Protonix Ec Tab) 40 mg PO DAILY [facility] Last Admin: 08/17/18 09:13 Dose: 40 mg Quetiapine Fumarate (Seroquel) 25 mg PO DAILY@1300 [facility] Last Admin: 08/17/18 13:04 Dose: 25 mg Quetiapine Fumarate (Seroquel) 25 mg PO HS [facility] Last Admin: 08/17/18 21:25 Dose: 25 mg - Labs Labs: 08/17/18 04:30 08/17/18 04:30 PT 11.9 Seconds (9.8-13.1) 08/15/18 21:40 INR 1.0 08/15/18 21:40 APTT 30.9 Seconds (25.6-37.1) 08/15/18 21:40 - Constitutional Appears: Confused - Head Exam Head Exam: ATRAUMATIC, NORMAL INSPECTION, NORMOCEPHALIC - Eye Exam Eye Exam: EOMI, Normal appearance, PERRL. absent: Conjunctival injection, Nystagmus, Periorbital swelling, Periorbital tenderness, Scleral icterus Pupil Exam: NORMAL ACCOMODATION, PERRL - ENT Exam ENT Exam: Mucous Membranes Moist, Normal Exam. absent: Mucous Membranes Dry, Normal External Ear Exam, Normal Oropharynx, TM's Normal Bilaterally - Neck Exam Neck Exam: Full ROM, Normal Inspection - Respiratory Exam Respiratory Exam: Clear to Ausculation Bilateral, NORMAL BREATHING PATTERN. absent: Accessory Muscle Use, Chest Wall Tenderness, Decreased Breath Sounds, Prolonged Expiratory Phase, Rales, Rhonchi, Wheezes, Respiratory Distress, Stridor - Cardiovascular Exam Cardiovascular Exam: Irregular Rhythm, +S1, +S2, Murmur. absent: Bradycardia, Tachycardia, Clicks, Diastolic murmur, Gallop, REGULAR RHYTHM, JVD, RRR, Rubs, +S4 - GI/Abdominal Exam GI & Abdominal Exam: Soft, Normal Bowel Sounds. absent: Bruit, Distended, Firm, Guarding, Rigid, Tenderness, Diminished Bowel Sounds, Hernia, Hyperactive Bowel Sounds, Hypoactive Bowel Sounds, Organomegaly, Pulsatile Mass, Rebound, Mass - Rectal Exam Rectal Exam: Deferred - Back Exam Back Exam: NORMAL INSPECTION. absent: CVA tenderness (L), CVA tenderness (R), Full ROM, muscle spasm, paraspinal tenderness, rash noted, tenderness, vertebral tenderness - Neurological Exam Neurological Exam: Alert. absent: Abnormal Gait, Altered, Awake, CN II-XII Intact, Motor Sensory Deficit, Normal Gait, Oriented x3, Reflexes Normal - Psychiatric Exam Psychiatric exam: Normal Affect, Normal Mood. absent: Agitated, Anxious, Depressed, Flat Affect, Homicidal Ideation, Manic, Suicidal Ideation - Skin Skin Exam: Normal Color, Warm. absent: Abrasion, Cyanosis, Diaphoretic, Dry, Erythema, Intact, Mottled, Pallor, Pallor, Petechiae, Rash, Urticaria, Vesicles Assessment and Plan (1) Altered mental status Status: Acute (2) Atrial fibrillation Status: Chronic (3) DM2 (diabetes mellitus, type 2) Status: Chronic (4) HTN (hypertension) Status: Chronic - Assessment and Plan (Free Text) Plan: HR WELL CONTROLLED ON Q12 TOPROL XL. TITRATE ACEI FOR BP CONTROL. 45 MIN TOTAL CARE TIME.
--- NOTE | 2018-08-17 23:56 | CARD ---
APPROVED REPORT Date of service: 08/17/2018 EXAM: Two-dimensional and M-mode echocardiogram with Doppler and color Doppler. Other Information Quality : GoodRhythm : Atrial Fibrillation INDICATION Atrial Fibrillation Elevated proBNP 2D DIMENSIONS IVSd1.47 (0.7-1.1cm)LVDd3.12 (3.9-5.9cm) LVOT Diameter1.69 (1.8-2.4cm)PWd0.92 (0.7-1.1cm) IVSs1.69 (0.8-1.2cm)LVDs2.22 (2.5-4.0cm) FS (%) 28.9 %PWs1.48 (0.8-1.2cm) M-Mode DIMENSIONS Left Atrium (MM)3.89 (2.5-4.0cm)Aortic Root1.76 (2.2-3.7cm) Aortic Cusp Exc.0.83 (1.5-2.0cm) Aortic Valve AoV Peak Lzziuqol160.6cm/sAoV VTI22.0cmAO Peak GR.5mmHg LVOT Peak Qrfuhzru81.0cm/sLVOT VTI15.67cmAO Mean GR.3mmHg DEMOND (VMAX)0.65ns7JEJ (VTI)1.10cm2 Mitral Valve MV E Jvixuxsq694.8cm/sMV E Peak Gr.30mmHgMV DECEL ZEOG432sb MV A Zoizamrt79.3cm/sMV VXS31ylS/A ratio3.6 MVA (PHT)2.84cm2 TDI E/Lateral E'0.0E/Medial E'0.0 Pulmonary Valve RVOT VTI15.3cm Tricuspid Valve TR Peak Hiyitwtb709ve/sTR Peak Gr.19mmHg LEFT VENTRICLE The left ventricle is normal size. There is mild concentric left ventricular hypertrophy. The left ventricular systolic function is normal. The estimated ejection fraction is 60-65% No regional wall motion abnormalities noted.. The left ventricular diastolic function cannot be assessed due to underlying atrial fibrillation. No left ventricle thrombus noted on this study. There is no ventricular septal defect visualized. There is no left ventricular aneurysm. There is no mass noted in the left ventricle. RIGHT VENTRICLE The right ventricle is normal size. There is normal right ventricular wall thickness. The right ventricular systolic function is normal. A PPM lead is noticed in right ventricle. ATRIA The left atrium is mildly dilated. The right atrium size is normal. The interatrial septum is intact with no evidence for an atrial septal defect. AORTIC VALVE The aortic valve is normal in structure. No aortic regurgitation is present. There is no aortic valvular stenosis. There is no aortic valvular vegetation. MITRAL VALVE The mitral valve is normal in structure. There is no evidence of mitral valve prolapse. There is no mitral valve stenosis. There is trace mitral valve regurgitation noted. TRICUSPID VALVE The tricuspid valve is normal in structure. There is mild tricuspid valve regurgitation noted. RVSP is calculated at 27 mm Hg. There is no tricuspid valve prolapse or vegetation. There is no tricuspid valve stenosis. PULMONIC VALVE The pulmonary valve is normal in structure. There is no pulmonic valvular regurgitation. There is no pulmonic valvular stenosis. GREAT VESSELS The aortic root is normal in size. The ascending aorta is normal in size. The pulmonary artery is normal. The IVC is normal in size and collapses >50% with inspiration. PERICARDIAL EFFUSION There is no pericardial effusion. There is no pleural effusion. <Conclusion> There is mild concentric left ventricular hypertrophy. The estimated ejection fraction is 60-65% The left ventricular diastolic function cannot be assessed due to underlying atrial fibrillation. A PPM lead is noticed in right ventricle. The left atrium is mildly dilated. There is trace mitral valve regurgitation noted. There is mild tricuspid valve regurgitation noted. RVSP is calculated at 27 mm Hg.
[2018-08-18] MEDS: Levothyroxine 50 MCG TAB PO SCH (06:24)
[2018-08-18] MEDS: Insulin Lispro (humaLOG) 100 Units/ml Inj SC SCH ×4 (07:17→21:36)
[2018-08-18 07:34] LABS: HEMOGLOBIN 11.6 g/dL (12.0-16.0); MEAN CELL VOLUME 89.7 fl (81.0-99.0); MEAN CORPUSCULAR HEMOGLOBIN 30.7 pg (27.0-31.0); MEAN CORPUSCULAR HGB CONC 34.2 g/dL (33.0-37.0); RBC 3.78 Mil/uL (3.80-5.20); RED CELL DISTRIBUTION WIDTH 14.7 % (11.5-14.5); WHITE BLOOD COUNT 8.9 K/uL (4.8-10.8)
[2018-08-18] MEDS: Pantoprazole 40 mg EC Tab PO SCH (09:42)
[2018-08-18] MEDS: Metoprolol Succinate 50 mg XL Tab PO SCH ×2 (09:43→21:32)
[2018-08-18] MEDS: Enoxaparin 40 mg Syringe SC SCH (09:44)
--- NOTE | 2018-08-18 09:55 | CP.PCM.PN ---
Subjective - Date & Time of Evaluation Date of Evaluation: 08/18/18 Time of Evaluation: 09:52 - Subjective Subjective: - Patient seen resting comfortably in bed . Slept well overnight. No overnight events reported. She is easily arousable, responds to simple commands. Oriented to person. - Denies any chest pain, dyspnea, fever or distress. Objective - Vital Signs/Intake and Output Vital Signs (last 24 hours): Temp Pulse Resp BP Pulse Ox 97.2 F L 77 20 132/63 100 08/18/18 07:51 08/18/18 09:43 08/18/18 07:51 08/18/18 09:43 08/18/18 07:51 - Medications Medications: Current Medications Dextrose (Dextrose 50% Inj) 0 ml IV STAT PRN; Protocol PRN Reason: Hypoglycemia Protocol Dextrose (Glutose 15) 0 gm PO ONCE PRN; Protocol PRN Reason: Hypoglycemia Protocol Digoxin (Digoxin) 0.125 mg PO Q48H [facility] Last Admin: 08/17/18 09:13 Dose: 0.125 mg Enoxaparin Sodium (Lovenox) 40 mg SC DAILY [facility]; Protocol Last Admin: 08/18/18 09:44 Dose: 40 mg Furosemide (Lasix) 20 mg PO DAILY [facility] Last Admin: 08/18/18 09:43 Dose: 20 mg Glucagon (Glucagen Diagnostic Kit) 0 mg IM STAT PRN; Protocol PRN Reason: Hypoglycemia Protocol Haloperidol Lactate (Haldol) 0.5 mg IM Q8 PRN PRN Reason: Agitation Insulin Human Lispro (Humalog) 0 units SC ACHS [facility]; Protocol Last Admin: 08/18/18 07:17 Dose: Not Given Levetiracetam (Keppra) 250 mg PO BID [facility] Last Admin: 08/18/18 09:42 Dose: 250 mg Levothyroxine Sodium (Synthroid) 50 mcg PO DAILY@0630 [facility] Last Admin: 08/18/18 06:24 Dose: 50 mcg Lisinopril (Zestril) 10 mg PO DAILY [facility] Last Admin: 08/18/18 09:42 Dose: 10 mg Metoprolol Succinate (Toprol Xl) 50 mg PO Q12 [facility] Last Admin: 08/18/18 09:43 Dose: 50 mg Pantoprazole Sodium (Protonix Ec Tab) 40 mg PO DAILY [facility] Last Admin: 08/18/18 09:42 Dose: 40 mg Quetiapine Fumarate (Seroquel) 25 mg PO DAILY@1300 [facility] Last Admin: 08/17/18 13:04 Dose: 25 mg Quetiapine Fumarate (Seroquel) 25 mg PO HS [facility] Last Admin: 08/17/18 21:25 Dose: 25 mg - Labs Labs: 08/18/18 06:30 08/18/18 06:30 PT 11.9 Seconds (9.8-13.1) 08/15/18 21:40 INR 1.0 08/15/18 21:40 APTT 30.9 Seconds (25.6-37.1) 08/15/18 21:40 - Constitutional Appears: No Acute Distress, Confused (baseline dementia) - Head Exam Head Exam: NORMAL INSPECTION - Eye Exam Eye Exam: Normal appearance - Respiratory Exam Respiratory Exam: Clear to Ausculation Bilateral. absent: Rhonchi, Wheezes - Cardiovascular Exam Cardiovascular Exam: Irregular Rhythm, +S1, +S2. absent: Bradycardia, Tachycardia - GI/Abdominal Exam GI & Abdominal Exam: Soft, Normal Bowel Sounds. absent: Tenderness - Neurological Exam Neurological Exam: Awake, CN II-XII Intact - Skin Skin Exam: Warm Assessment and Plan - Assessment and Plan (Free Text) Assessment: 87 yo F with atrial fibrillation, hypertension, hypothyroidism, NIDDM type 2, dementia, hypothyroidism, admitted due to altered mental status and worsening delirium. Has elevated proBNP. 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 Stable after medication change -Head CT IMPRESSION: Stable age related neuro degenerative changes are reiterated no definite acute intracranial findings appreciable. Follow-up CT or MRI are available as clinically warranted. -TSH 1.97 -Psych consult-- Dr. Neff, recs appreciated. -c/w seroquel 25 mg daily at 1300 -c/w seroqul 25 mg po hs -c/w Haldol 0.5 mg PO q8hrs prn -c/w Avasys monitor for fall risk Chronic atrial fibrillation - C/W Digoxin Q 48 and Metoprolol Succinate 50 Q12 -s/p pacemaker -Cardiology consult -- Dr. Hamilton, recs appreciated Hypertension: -Controlled after medication change - Echo 10/2015: normal LV wall motion, EF 60-65% - Increase metoprolol succinated to 50 mg q12 - c/w lisinopril 10 mg po daily - c/w lasix 20 mg po daily - Metoprolol Succinate 50 mg Q12 Elevated proBNP of 2130 -c/w Lasix 20 mg po daily - Echo EF 60-65%. Left atrium mildly dilated. Trace mitral valve regurgitation noted. Mild tricuspid valve regurgitation noted. History of multiple falls -Fall risk protocol -PT/OT evaluation Seizure disorder - Continue keppra 250 mg BID NIDDM - Hold home med metformin - Low dose insulin coverage scale Hypothyroidism - TSH 1.97 - Resume home med levothyroxine Hyperlipidema - Resume home med atorvastatin 40 mg Diet - Pureed, consistent carb/heart healthy DVT prophylaxis - Lovenox 40 mg sc daily Code status: -DNR/DNI
[2018-08-18 12:59] LABS: FOLATE 6.1 ng/mL
--- NOTE | 2018-08-18 16:08 | CP.PCM.PN ---
Subjective - Date & Time of Evaluation Date of Evaluation: 08/18/18 Time of Evaluation: 16:08 - Subjective Subjective: remains altered Objective - Vital Signs/Intake and Output Vital Signs (last 24 hours): Temp Pulse Resp BP Pulse Ox 97.4 F L 72 20 150/74 99 08/18/18 12:22 08/18/18 12:22 08/18/18 12:22 08/18/18 12:22 08/18/18 12:22 - Medications Medications: Current Medications Dextrose (Dextrose 50% Inj) 0 ml IV STAT PRN; Protocol PRN Reason: Hypoglycemia Protocol Dextrose (Glutose 15) 0 gm PO ONCE PRN; Protocol PRN Reason: Hypoglycemia Protocol Digoxin (Digoxin) 0.125 mg PO Q48H [facility] Last Admin: 08/17/18 09:13 Dose: 0.125 mg Enoxaparin Sodium (Lovenox) 40 mg SC DAILY [facility]; Protocol Last Admin: 08/18/18 09:44 Dose: 40 mg Furosemide (Lasix) 20 mg PO DAILY [facility] Last Admin: 08/18/18 09:43 Dose: 20 mg Glucagon (Glucagen Diagnostic Kit) 0 mg IM STAT PRN; Protocol PRN Reason: Hypoglycemia Protocol Haloperidol Lactate (Haldol) 0.5 mg IM Q8 PRN PRN Reason: Agitation Insulin Human Lispro (Humalog) [address] [facility]; Protocol Last Admin: 08/18/18 13:07 Dose: 1 units Levetiracetam (Keppra) 250 mg PO BID [facility] Last Admin: 08/18/18 09:42 Dose: 250 mg Levothyroxine Sodium (Synthroid) 50 mcg PO DAILY@0630 [facility] Last Admin: 08/18/18 06:24 Dose: 50 mcg Lisinopril (Zestril) 10 mg PO DAILY [facility] Last Admin: 08/18/18 09:42 Dose: 10 mg Metoprolol Succinate (Toprol Xl) 50 mg PO Q12 [facility] Last Admin: 08/18/18 09:43 Dose: 50 mg Pantoprazole Sodium (Protonix Ec Tab) 40 mg PO DAILY [facility] Last Admin: 08/18/18 09:42 Dose: 40 mg Quetiapine Fumarate (Seroquel) 25 mg PO DAILY@1300 [facility] Last Admin: 08/17/18 13:04 Dose: 25 mg Quetiapine Fumarate (Seroquel) 25 mg PO HS [facility] Last Admin: 08/17/18 21:25 Dose: 25 mg - Labs Labs: 08/18/18 06:30 08/18/18 06:30 PT 11.9 Seconds (9.8-13.1) 08/15/18 21:40 INR 1.0 08/15/18 21:40 APTT 30.9 Seconds (25.6-37.1) 08/15/18 21:40 - Constitutional Appears: Confused - Head Exam Head Exam: ATRAUMATIC, NORMAL INSPECTION, NORMOCEPHALIC - Eye Exam Eye Exam: EOMI, Normal appearance, PERRL. absent: Conjunctival injection, Nystagmus, Periorbital swelling, Periorbital tenderness, Scleral icterus Pupil Exam: NORMAL ACCOMODATION, PERRL - ENT Exam ENT Exam: Mucous Membranes Moist, Normal Exam. absent: Mucous Membranes Dry, Normal External Ear Exam, Normal Oropharynx, TM's Normal Bilaterally - Neck Exam Neck Exam: Full ROM, Normal Inspection. absent: Lymphadenopathy, Meningismus, Tenderness, Thyromegaly - Respiratory Exam Respiratory Exam: Rales. absent: Accessory Muscle Use, Chest Wall Tenderness, Decreased Breath Sounds, Clear to Ausculation Bilateral, Prolonged Expiratory Phase, Rhonchi, Wheezes, Respiratory Distress, Stridor, NORMAL BREATHING PATTERN - Cardiovascular Exam Cardiovascular Exam: Irregular Rhythm, +S1, +S2, Murmur. absent: Bradycardia, Tachycardia, Clicks, Diastolic murmur, Gallop, REGULAR RHYTHM, JVD, RRR, Rubs, +S4 - GI/Abdominal Exam GI & Abdominal Exam: Soft, Normal Bowel Sounds. absent: Bruit, Distended, Firm, Guarding, Rigid, Tenderness, Diminished Bowel Sounds, Hernia, Hyperactive Bowel Sounds, Hypoactive Bowel Sounds, Organomegaly, Pulsatile Mass, Rebound, Mass - Rectal Exam Rectal Exam: Deferred - Extremities Exam Extremities Exam: Normal Capillary Refill, Pedal Edema. absent: Calf Tenderness, Joint Swelling, Tenderness - Back Exam Back Exam: NORMAL INSPECTION. absent: CVA tenderness (L), CVA tenderness (R), Full ROM, muscle spasm, paraspinal tenderness, rash noted, tenderness, vertebral tenderness - Neurological Exam Neurological Exam: Awake - Psychiatric Exam Psychiatric exam: Normal Affect, Normal Mood. absent: Agitated, Anxious, Depressed, Flat Affect, Homicidal Ideation, Manic, Suicidal Ideation - Skin Skin Exam: Dry, Intact, Normal Color, Warm. absent: Abrasion, Cyanosis, Diaphoretic, Erythema, Mottled, Pallor, Pallor, Petechiae, Rash, Urticaria, Vesicles Assessment and Plan (1) Altered mental status Status: Acute (2) Atrial fibrillation Status: Chronic (3) DM2 (diabetes mellitus, type 2) Status: Chronic (4) HTN (hypertension) Status: Chronic - Assessment and Plan (Free Text) Plan: HR IMPROVED AND CONTROLLED. WILL SIGN OFF. PLEASE RECONSULT NEEDED.
[2018-08-19] MEDS: Levothyroxine 50 MCG TAB PO SCH (06:41)
[2018-08-19] MEDS: Insulin Lispro (humaLOG) 100 Units/ml Inj SC SCH ×3 (06:43→16:15)
[2018-08-19] MEDS: Metoprolol Succinate 50 mg XL Tab PO SCH (09:36)
[2018-08-19] MEDS: Pantoprazole 40 mg EC Tab PO SCH (09:37)
[2018-08-19] MEDS: Digoxin 125 mcg (0.125 mg) Tab PO SCH (09:37)
[2018-08-19] MEDS: Enoxaparin 40 mg Syringe SC SCH (09:37)
[2018-08-19 09:38] VITALS: PULSE 77
--- NOTE | 2018-08-19 10:32 | CP.PCM.PN ---
Subjective - Date & Time of Evaluation Date of Evaluation: 08/19/18 Time of Evaluation: 09:45 - Subjective Subjective: Patient seen and examined this morning. No acute overnight events. Patient is awake, alert and oriented to person only. Has baseline dementia. Responds to simple questions. Slept well overnight Atrial fibrillation with stable heart rate and blood pressure. Denies any chest pain, dyspnea, vomiting or fever. Objective - Vital Signs/Intake and Output Vital Signs (last 24 hours): Temp Pulse Resp BP Pulse Ox 98.4 F 77 20 134/54 L 99 08/19/18 08:25 08/19/18 09:36 08/19/18 08:25 08/19/18 09:37 08/19/18 08:25 - Medications Medications: Current Medications Dextrose (Dextrose 50% Inj) 0 ml IV STAT PRN; Protocol PRN Reason: Hypoglycemia Protocol Dextrose (Glutose 15) 0 gm PO ONCE PRN; Protocol PRN Reason: Hypoglycemia Protocol Digoxin (Digoxin) 0.125 mg PO Q48H [facility] Last Admin: 08/19/18 09:37 Dose: 0.125 mg Enoxaparin Sodium (Lovenox) 40 mg SC DAILY [facility]; Protocol Last Admin: 08/19/18 09:37 Dose: 40 mg Furosemide (Lasix) 20 mg PO DAILY [facility] Last Admin: 08/19/18 09:37 Dose: 20 mg Glucagon (Glucagen Diagnostic Kit) 0 mg IM STAT PRN; Protocol PRN Reason: Hypoglycemia Protocol Haloperidol Lactate (Haldol) 0.5 mg IM Q8 PRN PRN Reason: Agitation Insulin Human Lispro (Humalog) 0 units SC ACHS [facility]; Protocol Last Admin: 08/19/18 06:43 Dose: Not Given Levetiracetam (Keppra) 250 mg PO BID [facility] Last Admin: 08/19/18 09:37 Dose: 250 mg Levothyroxine Sodium (Synthroid) 50 mcg PO DAILY@0630 [facility] Last Admin: 08/19/18 06:41 Dose: 50 mcg Lisinopril (Zestril) 10 mg PO DAILY [facility] Last Admin: 08/19/18 09:36 Dose: 10 mg Metoprolol Succinate (Toprol Xl) 50 mg PO Q12 [facility] Last Admin: 08/19/18 09:36 Dose: 50 mg Pantoprazole Sodium (Protonix Ec Tab) 40 mg PO DAILY [facility] Last Admin: 08/19/18 09:37 Dose: 40 mg Quetiapine Fumarate (Seroquel) 25 mg PO DAILY@1300 [facility] Last Admin: 08/18/18 13:30 Dose: 25 mg Quetiapine Fumarate (Seroquel) 25 mg PO HS [facility] Last Admin: 08/18/18 21:32 Dose: 25 mg - Labs Labs: 08/18/18 06:30 08/18/18 06:30 PT 11.9 Seconds (9.8-13.1) 08/15/18 21:40 INR 1.0 08/15/18 21:40 APTT 30.9 Seconds (25.6-37.1) 08/15/18 21:40 - Constitutional Appears: Non-toxic, No Acute Distress, Confused (baseline dementia, oriented to person only.) - Head Exam Head Exam: NORMAL INSPECTION - Eye Exam Eye Exam: Normal appearance - ENT Exam ENT Exam: Mucous Membranes Moist, Normal Oropharynx - Neck Exam Neck Exam: Normal Inspection - Respiratory Exam Respiratory Exam: Clear to Ausculation Bilateral, NORMAL BREATHING PATTERN. absent: Rhonchi, Wheezes - Cardiovascular Exam Cardiovascular Exam: Irregular Rhythm, +S1, +S2 - GI/Abdominal Exam GI & Abdominal Exam: Soft, Normal Bowel Sounds. absent: Tenderness - Extremities Exam Extremities Exam: Normal Inspection. absent: Calf Tenderness, Pedal Edema - Neurological Exam Neurological Exam: Alert, Awake (Oriented to person only.) - Skin Additional comments: small partial thickness wound on left buttock covered with dressing. No oozing seen. Assessment and Plan - Assessment and Plan (Free Text) Plan: 87 yo F with atrial fibrillation, hypertension, hypothyroidism, NIDDM type 2, dementia, hypothyroidism, admitted due to altered mental status and worsening delirium. Had elevated proBNP of 2130 on admission. Patient's atrial fibrillation is now controlled with Metoprolol 25 mg q12. Patient's altered mental status improved and seems to in patient's baseline. Anticipate discharge today to [facility] this afternoon. 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 Stable after medication change -Head CT IMPRESSION: Stable age related neuro degenerative changes are reite rated no definite acute intracranial findings appreciable. Follow-up CT or MRI are available as clinically warranted. -TSH 1.97 -Psych consult-- Dr. Neff, recs appreciated. -c/w seroquel 25 mg daily at 1300 -c/w seroqul 25 mg po hs -c/w Haldol 0.5 mg PO q8hrs prn -c/w Avasys monitor for fall risk -Anticipate discharge to [facility] today. Chronic atrial fibrillation -C/W Digoxin Q 48 and Metoprolol Succinate 50 Q12 -s/p pacemaker -Cardiology consult -- Dr. Hamilton, recs appreciated Hypertension -Has low BP this afternoon 91/58, repeat BP at 1400 is 98/59 with HR of 77 - Echo 10/2015: normal LV wall motion, EF 60-65% - Echo on 08/16/18: EF 60-65%. Left atrium mildly dilated. Trace mitral valve regurgitation noted. Mild tricuspid valve regurgitation noted. - c/w metoprolol succinate 50 mg po q12 - d/c lasix 20 mg po daily due to low BP (patient's lasix was discontinued in 07/2018 due to low BP) - Change lisinopril from 10 mg to 5 mg po daily due low BP this morning. Elevated proBNP of 2130 -Received lasix 20 mg po daily for 3 days, d/c today -Echo EF 60-65%. Left atrium mildly dilated. Trace mitral valve regurgitation noted. Mild tricuspid valve regurgitation noted. History of multiple falls -Fall risk protocol -PT/OT: recommends subacute rehab Seizure disorder - Continue keppra 250 mg BID NIDDM - Hold home med metformin - Low dose insulin coverage scale Hypothyroidism - TSH 1.97 - Resume home med levothyroxine Hyperlipidema - Resume home med atorvastatin 40 mg Diet - Pureed, consistent carb/heart healthy DVT prophylaxis - Lovenox 40 mg sc daily Code status: -DNR/DNI
--- NOTE | 2018-08-19 15:52 | CP.PCM.DIS ---
Provider - Provider Date of Admission: 08/16/18 13:35 Attending physician: Lila Yeh MD Consults: 08/16/18 06:26 Psychiatry Consult Stat Comment: dementia w/ psychosis, on seroquel Consulting Provider: Juany Neff Consulting Physician: Juany Neff Reason for Consult: dementia w/ psychosis, on seroquel 08/16/18 11:42 Case Management Referral Routine Comment: Physician Instructions: Reason For Exam: Reason for Referral: Discharge Planning Nursing Referral for Palliative Care Routine Comment: Consulting Provider: Physician Instructions: Reason For Exam: Nursing assessement Nursing Referral for Wound Care Routine Comment: Physician Instructions: Reason For Exam: Sacrum area redness 08/16/18 12:05 Cardiology Consult Routine Comment: Consulting Provider: Teri Hamilton Consulting Physician: Teri Hamilton Reason for Consult: chronic atrial fibrillation, rate not controlled 08/16/18 12:37 Pastoral Care Referral Routine Comment: Physician Instructions: Reason For Exam: Advance directive information Time Spent in preparation of Discharge (in minutes): 35 Diagnosis - Discharge Diagnosis (1) Major neurocognitive disorder Status: Chronic (2) Altered mental status Status: Resolved (3) Atrial fibrillation Status: Chronic Onset Date: 04/16/14 (4) DM2 (diabetes mellitus, type 2) Status: Chronic (5) HTN (hypertension) Status: Chronic (6) Hypothyroidism Status: Chronic (7) Elevated brain natriuretic peptide (BNP) level Status: Acute (8) Seizure disorder Status: Chronic (9) Hx of fall Status: Chronic Hospital Course - Lab Results Lab Results: Micro Results 08/15/18 21:40 Blood-Venous Blood Culture - Preliminary NO GROWTH AFTER 3 DAYS 08/16/18 03:19 Urine,Catheterized Urine Culture - Final No Growth (<1,000 CFU/ML) Most Recent Lab Values WBC 8.9 K/uL (4.8-10.8) D 08/18/18 06:30 RBC 3.78 Mil/uL (3.80-5.20) L 08/18/18 06:30 Hgb 11.6 g/dL (12.0-16.0) L 08/18/18 06:30 Hct 33.9 % (34.0-47.0) L 08/18/18 06:30 MCV 89.7 fl (81.0-99.0) 08/18/18 06:30 MCH 30.7 pg (27.0-31.0) 08/18/18 06:30 MCHC 34.2 g/dL (33.0-37.0) 08/18/18 06:30 RDW 14.7 % (11.5-14.5) H 08/18/18 06:30 Plt Count 258 K/uL (130-400) 08/18/18 06:30 MPV 9.2 fl (7.2-11.7) 08/17/18 04:30 Neut % (Auto) 60.4 % (50.0-75.0) 08/17/18 04:30 Lymph % (Auto) 28.4 % (20.0-40.0) 08/17/18 04:30 [place] % (Auto) 9.3 % (0.0-10.0) 08/17/18 04:30 Eos % (Auto) 1.4 % (0.0-4.0) 08/17/18 04:30 Baso % (Auto) 0.5 % (0.0-2.0) 08/17/18 04:30 Neut # (Auto) 3.1 K/uL (1.8-7.0) 08/17/18 04:30 Lymph # (Auto) 1.5 K/uL (1.0-4.3) 08/17/18 04:30 [place] # (Auto) 0.5 K/uL (0.0-0.8) 08/17/18 04:30 Eos # (Auto) 0.1 K/uL (0.0-0.7) 08/17/18 04:30 Baso # (Auto) 0.0 K/uL (0.0-0.2) 08/17/18 04:30 PT 11.9 Seconds (9.8-13.1) 08/15/18 21:40 INR 1.0 08/15/18 21:40 APTT 30.9 Seconds (25.6-37.1) 08/15/18 21:40 pO2 29 mm/Hg (30-55) L 08/15/18 21:07 VBG pH 7.56 (7.32-7.43) H 08/15/18 21:07 VBG pCO2 24 mmHg (40-60) L 08/15/18 21:07 VBG HCO3 24.2 mmol/L 08/15/18 21:07 VBG Total CO2 22.2 mmol/L (22-28) 08/15/18 21:07 VBG O2 Sat (Calc) 78.8 % (40-65) H 08/15/18 21:07 VBG Base Excess -0.6 mmol/L (0.0-2.0) L 08/15/18 21:07 VBG Potassium 4.9 mmol/L (3.6-5.2) 08/15/18 21:07 Sodium 134.0 mmol/L (132-148) 08/15/18 21:07 Chloride 107.0 mmol/L (98-107) 08/15/18 21:07 Glucose 84 mg/dL (65-105) 08/15/18 21:07 Lactate 2.6 mmol/L (0.7-2.1) H 08/15/18 21:07 FiO2 21.0 % 08/15/18 21:07 Sodium 132 mmol/l (132-148) 08/18/18 06:30 Potassium 4.2 MMOL/L (3.6-5.0) 08/18/18 06:30 Chloride 98 mmol/L (98-107) 08/18/18 06:30 Carbon Dioxide 25 mmol/L (22-30) 08/18/18 06:30 Anion Gap 13 (10-20) 08/18/18 06:30 BUN 14 mg/dl (7-17) 08/18/18 06:30 Creatinine 0.8 mg/dl (0.7-1.2) 08/18/18 06:30 Est GFR ( Amer) > 60 08/18/18 06:30 Est GFR (Non-Af Amer) > 60 08/18/18 06:30 POC Glucose (mg/dL) 238 mg/dL (65-110) H 08/19/18 11:10 Random Glucose 129 mg/dL (65-105) H 08/18/18 06:30 Lactic Acid 1.1 mmol/L (0.7-2.1) 08/16/18 03:19 Calcium 9.2 mg/dL (8.4-10.2) 08/18/18 06:30 Phosphorus 4.0 mg/dl (2.5-4.5) 08/17/18 04:30 Magnesium 1.8 MG/DL (1.6-2.3) 08/17/18 04:30 Total Bilirubin 0.2 mg/dl (0.2-1.3) 08/17/18 04:30 AST 18 U/L (14-36) 08/17/18 04:30 ALT 17 U/L (9-52) 08/17/18 04:30 Alkaline Phosphatase 56 U/L (38-126) 08/17/18 04:30 Troponin I < 0.0120 ng/mL (0.00-0.120) 08/15/18 21:40 NT-Pro-B Natriuret Pep 2130 pg/ml (0-900) H 08/15/18 21:40 Total Protein 7.0 G/DL (6.3-8.2) 08/17/18 04:30 Albumin 3.6 g/dL (3.5-5.0) 08/17/18 04:30 Globulin 3.4 gm/dL (2.2-3.9) 08/17/18 04:30 Albumin/Globulin Ratio 1.1 (1.0-2.1) 08/17/18 04:30 Vitamin B12 357 pg/mL (239-931) 08/18/18 06:30 Folate 6.1 ng/mL 08/18/18 06:30 TSH 3rd Generation 1.97 mIU/ML (0.46-4.68) 08/16/18 06:10 Venous Blood Potassium 4.9 mmol/L (3.6-5.2) 08/15/18 21:07 Urine Color Straw (YELLOW) 08/16/18 03:19 Urine Clarity Clear (Clear) 08/16/18 03:19 Urine pH 7.0 (5.0-8.0) 08/16/18 03:19 Ur Specific [place] 1.008 (1.003-1.030) 08/16/18 03:19 Urine Protein Negative mg/dL (NEGATIVE) 08/16/18 03:19 Urine Glucose (UA) Neg mg/dL (NEGATIVE) 08/16/18 03:19 Urine Ketones Negative mg/dL (NEGATIVE) 08/16/18 03:19 Urine Blood Negative (NEGATIVE) 08/16/18 03:19 Urine Nitrate Negative (NEGATIVE) 08/16/18 03:19 Urine Bilirubin Negative (NEGATIVE) 08/16/18 03:19 Urine Urobilinogen 0.2-1.0 mg/dL (0.2-1.0) 08/16/18 03:19 Ur Leukocyte Esterase Neg Brigitte/uL (Negative) 08/16/18 03:19 Urine RBC (Auto) 2 /hpf (0-3) 08/16/18 03:19 Urine Microscopic WBC 1 /hpf (0-5) 08/16/18 03:19 Digoxin 0.7 ng/mL (0.8-2.0) L 08/16/18 03:19 Blood Type B POSITIVE 08/15/18 21:40 Antibody Screen Positive 08/15/18 21:40 Antibody Identification Anti Fya 08/15/18 21:40 BBK History Checked Patient has bt 08/15/18 21:40 - Hospital Course Hospital Course: 87 year old female with PMHx of atrial fibrillation, hypertension, hypothyroidism, NIDDM type 2, Major neurocognitive disorder, recent onset seizure disorder admitted to [facility] on 08/16/18 for acute agitation, alterered mental status, atrial fibrillation with RVR and dehyration. Psychiatry and r and d lab technician were involved in patient's care. Patient received seroquel 25 mg po at 1300 and seroquel 25 mg po HS and behavior improved significantly and returned to baseline dementia. Patient's atrial fibrillation were controlled with digoxin 0.125 mg po q48 hours and Metoprolol 50 mg po q12 hours. Patient's head CT showed Stable age related neuro degenerative changes are reiterated no definite acute intracranial findings appreciable. Echocardiogram showed EF 60- 65%. Left atrium mildly dilated. Trace mitral valve regurgitation noted. Mild tricuspid valve regurgitation noted. Urine culture was negative and blood cx shows no growth after 3 days. This afternoon, patient's BP was in the lower side this afternoon in 90s/60s (patient had similar BP outpatient in 07/23/2018). Lasix 20 mg was discontinued and lisinopril 10 mg changed to lisinopril 5 mg. Patient's lisinopril can be titrated up if the BP is elevated or metoprolol to 75 mg po q12 if necessary per recommendation of Dr. Hamilton. Patient is hemodynamically stable to discharge to [facility]. Medications on discharge: Digoxin (Digoxin) 0.125 mg PO Q48H IVAN Metoprolol Succinate (Toprol Xl) 50 mg PO Q12 IVAN Pantoprazole Sodium (Protonix Ec Tab) 40 mg PO DAILY IVAN Quetiapine Fumarate (Seroquel) 25 mg PO DAILY@1300 IVAN Quetiapine Fumarate (Seroquel) 25 mg PO HS IVAN Levetiracetam (Keppra) 250 mg PO BID IVAN Levothyroxine Sodium (Synthroid) 50 mcg PO DAILY Lisinopril (Zestril) 5 mg PO DAILY IVAN Rosuvastatin 10 mg po hs Metformin 500 mg po bid Discharge Exam - Head Exam Head Exam: NORMAL INSPECTION - ENT Exam ENT Exam: Mucous Membranes Moist - Neck Exam Neck exam: Normal Inspection - Respiratory Exam Respiratory Exam: Clear to PA & Lateral, NORMAL BREATHING PATTERN. absent: Wheezes, Respiratory Distress - Cardiovascular Exam Cardiovascular Exam: Irregular Rhythm, +S1, +S2 - GI/Abdominal Exam GI & Abdominal Exam: Normal Bowel Sounds, Soft. absent: Tenderness - Extremities Exam Extremities exam: normal inspection - Neurological Exam Neurological exam: Alert - Skin Additional comments: small partial thickness wound on left buttock covered with dressing. No oozing seen. Discharge Plan - Follow Up Plan Condition: FAIR Disposition: REHAB FACILITY/REHAB UNIT Instructions: Atrial Fibrillation (DC), Altered Mental Status (DC) Additional Instructions: Discharge to [facility] Continue with seroquel 25 mg po at 1300 and seroquel 25 mg po HS Continue with Metoprolol succinate 50 mg po q12 hrs continue with 0.125 mg every 48 hours Will change lisinopril to 5 mg from 10 mg, if BP is elevated lisinopril can be titrated up Discontinue Lasix 20 mg po daily due to low bp Continue with pantoprazole 40 mg po daily, consider tapering off if patient has good po intake. Referrals: Lila Yeh MD [Family Provider] - Teri Hamilton MD [Staff Provider] - Juany Neff MD [Medical Doctor] - Clinical Quality Measures - CQM - Heart Failure Ejection Fraction: 40 % or Greater Left Ventricular Function to be assessed after discharge: No SHARRI Inhibitor Prescribed: Yes Beta-Stephane Prescribed: Metoprolol Succinate Angiotensin II Receptor Stephane Prescribed: No Contraindication/Reason for not providing: patient is on ACEI AnticoagulationTherapy for Atrial Fibrillation/Atrialflutter: No Contraindication/Reason for not providing: HX frequent falls Aldosterone Antagonist Prescribed: No Contraindication/Reason for not providing: EF >60% Implantable Cardioverter Defibrillator Therapy: Yes Will be discharged to: [facility] ([facility])
[2018-08-19 16:04] VITALS: PULSE 93; RESP 16; TEMP 97.8; O2SAT 100
[2018-08-19 16:30] VITALS: BP 97/55
[2018-08-19 22:15] LABS: BLOOD UREA NITROGEN 23 mg/dl (7-17); CALCIUM 9.6 mg/dL (8.4-10.2); GFR NON-AFRICAN AMERICAN 59
== END 2018-08-19 18:00 | DRG 310 ==
LOC: H.ER 18:07 → H.ERHOLD 08-16 00:45 → UNDOADMOB 08-16 00:45 → H.TEL 08-16 06:08 → OBSVTOIN 08-16 13:35
PROVIDERS: ADMIT Family Medicine; ATTEND Family Medicine
DX: I48.2 Chronic atrial fibrillation (principal); F01.50 Vascular dementia, unspecified severity, without behavioral disturbance, psychotic disturbance, mood disturbance, and anxiety; E86.0 Dehydration; R00.0 Tachycardia, unspecified; I08.1 Rheumatic disorders of both mitral and tricuspid valves; E11.9 Type 2 diabetes mellitus without complications; E03.9 Hypothyroidism, unspecified; I10 Essential (primary) hypertension; E78.5 Hyperlipidemia, unspecified; G40.909 Epilepsy, unspecified, not intractable, without status epilepticus; M81.0 Age-related osteoporosis without current pathological fracture; E78.00 Pure hypercholesterolemia, unspecified; R03.1 Nonspecific low blood-pressure reading; R29.6 Repeated falls; Z95.810 Presence of automatic (implantable) cardiac defibrillator; Z66 Do not resuscitate; D64.9 Anemia, unspecified; F41.9 Anxiety disorder, unspecified; K29.70 Gastritis, unspecified, without bleeding; M19.90 Unspecified osteoarthritis, unspecified site; Z91.81 History of falling; Z79.84 Long term (current) use of oral hypoglycemic drugs